=== PATIENT | male | born 1990 | race Caucasian/White ===

== ENCOUNTER 2017-08-05 02:18 | Emergency (ER) | payer MEDICAID ==
[~2017-08-05] VITALS: Ht 162.6 cm; Wt 59.1 kg
[2017-08-05] MEDS ORDERED: SODIUM CHLORIDE 0.9% 1,000 ML IV ONE (02:45)
[2017-08-05 05:15] VITALS: BP 124/81
== END 2017-08-05 05:55 | disposition home or self-care (01) ==
LOC: EMS 02:19
DX: F10.129 Alcohol abuse with intoxication, unspecified (principal); F17.210 Nicotine dependence, cigarettes, uncomplicated
CPT/HCPCS: 96360; 99284; J7030

== ENCOUNTER 2017-12-20 05:52 | Emergency (ER) | payer MEDICAID ==
[~2017-12-20] VITALS: Ht 170.2 cm; Wt 72.5 kg
[2017-12-20 06:58] LABS: EOSINOPHILS % (AUTO) 1.6 % (1.0-6.0); HEMATOCRIT 44.2 % (41-53); HEMOGLOBIN 15.3 g/dL (13.5-17.5); LYMPHOCYTES # (AUTO) 2.1 K/uL (1.0-4.8); LYMPHOCYTES % (AUTO) 40.1 % (22.0-44.0); MEAN CORPUSCULAR HEMOGLOBIN 34.6 pg (26.0-34.0); MEAN CORPUSCULAR HGB CONC 34.7 G/dL (31.0-37.0); MEAN CORPUSCULAR VOLUME 100 fL (80-100); MONOCYTES # (AUTO) 0.8 K/uL (0.1-1.0); MONOCYTES % (AUTO) 15.7 % (2.0-9.0); NEUTROPHILS # (AUTO) 2.2 K/uL (1.8-7.7); NEUTROPHILS % (AUTO) 41.6 % (40.0-70.0); PLATELET COUNT (AUTO) 274 K/uL (150-450); RED BLOOD CELL COUNT(AUTO) 4.43 MIL/uL (4.50-5.90); RED CELL DISTRIBUTION WIDTH 13.8 % (11.5-14.5)
[2017-12-20 07:07] LABS: ANION GAP 6 mmol/L (8-16); CALCIUM, TOTAL 8.4 mg/dL (8.8-10.5); CARBON DIOXIDE 32 mmol/L (22-29); CHLORIDE 105 mmol/L (98-107); CREATININE 0.87 mg/dL (0.60-1.30); GLOMERULAR FILTR. RATE CALC > 60 mL/min (>60); GLUCOSE,RANDOM 99 mg/dL (70-110); POTASSIUM 4.2 mmol/L (3.5-5.1); SODIUM SERUM 143 mmol/L (136-145); UREA NITROGEN, BLOOD 5 mg/dL (7-18)
[2017-12-20 07:15] LABS: ALANINE AMINOTRANSFERASE 162 U/L (12-78); ALBUMIN 3.7 g/dL (3.4-5.0); ALKALINE PHOSPHATASE 109 U/L (46-116); ASPARTATE AMINOTRANSFERASE 143 U/L (15-37); BILIRUBIN,TOTAL 0.4 mg/dL (0.1-1.0); TOTAL PROTEIN, SERUM 7.8 g/dL (6.4-8.2)
[2017-12-20 11:21] VITALS: BP 107/62
[2017-12-20 12:07] LABS: AMPHET/METH SCREEN,URINE NEGATIVE (NEGATIVE); BARBITURATE SCREEN, URINE NEGATIVE (NEGATIVE); BENZODIAZEPINES SCREEN,URINE NEGATIVE (NEGATIVE); CANNABINOID SCREEN,URINE NEGATIVE (NEGATIVE); COCAINE SCREEN,URINE NEGATIVE (NEGATIVE); METHADONE SCREEN, URINE NEGATIVE (NEGATIVE); OPIATE SCREEN,URINE NEGATIVE (NEGATIVE)
[2017-12-20 12:08] LABS: PHENCYCLIDINE SCREEN,URINE NEGATIVE (NEGATIVE)
== END 2017-12-20 12:37 | disposition home or self-care (01) ==
LOC: EMS 05:53
DX: F10.129 Alcohol abuse with intoxication, unspecified (principal); F17.210 Nicotine dependence, cigarettes, uncomplicated; Y90.8 Blood alcohol level of 240 mg/100 ml or more
CPT/HCPCS: 36415; 80053; 80307; 85025; 99284; G0480

== ENCOUNTER 2019-04-19 00:34 | Emergency (ER) | payer MEDICAID ==
[~2019-04-19] VITALS: Ht 162.6 cm; Wt 74.0 kg
[2019-04-19] MEDS ORDERED: LevETIRAcetam 1,000 MG in DEXTROSE 5%-WATER 100 ML IV ONE (00:45)
[2019-04-19 01:38] LABS: EOSINOPHILS % (AUTO) 0.8 % (1.0-6.0); HEMATOCRIT 38.6 % (41-53); HEMOGLOBIN 12.8 g/dL (13.5-17.5); LYMPHOCYTES % (AUTO) 25.7 % (22.0-44.0); MEAN CORPUSCULAR HEMOGLOBIN 32.9 pg (26.0-34.0); MEAN CORPUSCULAR HGB CONC 33.2 G/dL (31.0-37.0); MEAN CORPUSCULAR VOLUME 99 fL (80-100); MONOCYTES # (AUTO) 0.7 K/uL (0.1-1.0); MONOCYTES % (AUTO) 19.6 % (2.0-9.0); NEUTROPHILS % (AUTO) 52.9 % (40.0-70.0); PLATELET COUNT (AUTO) 228 K/uL (150-450); RED CELL DISTRIBUTION WIDTH 14.1 % (11.5-14.5)
[2019-04-19 01:57] LABS: ALANINE AMINOTRANSFERASE 68 U/L (12-78); ALBUMIN 3.1 g/dL (3.4-5.0); ALKALINE PHOSPHATASE 91 U/L (46-116); ANION GAP 9 mmol/L (8-16); ASPARTATE AMINOTRANSFERASE 106 U/L (15-37); BILIRUBIN,TOTAL 0.3 mg/dL (0.1-1.0); CALCIUM, TOTAL 7.8 mg/dL (8.8-10.5); CARBON DIOXIDE 26 mmol/L (22-29); CHLORIDE 106 mmol/L (98-107); CREATININE 0.92 mg/dL (0.60-1.30); GLOMERULAR FILTR. RATE CALC > 60 mL/min (>60); GLUCOSE,RANDOM 125 mg/dL (70-110); SODIUM SERUM 141 mmol/L (136-145); TOTAL PROTEIN, SERUM 7.1 g/dL (6.4-8.2); UREA NITROGEN, BLOOD 4 mg/dL (7-18)
[2019-04-19 01:59] LABS: POTASSIUM 2.9 mmol/L (3.5-5.1)
[2019-04-19] MEDS ORDERED: POTASSIUM CHLORIDE 20 MEQ ER TABLET PO ONE (02:15)
[2019-04-19] MEDS ORDERED: SODIUM CHLORIDE 0.9% 1,000 ML IV ONE (02:15)
[2019-04-19] MEDS: POTASSIUM CHL 10 MEQ/WATER 50 ML IV SCH ×2 (02:17→03:10)
[2019-04-19 05:53] VITALS: BP 110/67
== END 2019-04-19 06:10 | disposition home or self-care (01) ==
LOC: EMS 00:36
DX: G40.909 Epilepsy, unspecified, not intractable, without status epilepticus (principal); F17.210 Nicotine dependence, cigarettes, uncomplicated
CPT/HCPCS: 36415; 70450; 80053; 85025; 96365; 99284; 99406; G0480; J0712; J3480; J7030; J7060

== ENCOUNTER 2019-04-26 20:40 | Emergency (ER) | payer MEDICAID ==
[~2019-04-26] VITALS: Ht 172.7 cm; Wt 75.0 kg
[2019-04-26] MEDS ORDERED: LORazepam 2 MG/ML VIAL ONE (21:19)
[2019-04-26] MEDS ORDERED: SODIUM CHLORIDE 0.9% 1,000 ML IV ONE (22:00)
[2019-04-26] MEDS ORDERED: LevETIRAcetam 1,000 MG in DEXTROSE 5%-WATER 100 ML IV ONE (22:00)
[2019-04-26 22:02] LABS: BASOPHILS % (AUTO) 0.6 % (0.0-2.0); EOSINOPHILS % (AUTO) 0.6 % (1.0-6.0); HEMATOCRIT 43.2 % (41-53); HEMOGLOBIN 14.4 g/dL (13.5-17.5); LYMPHOCYTES # (AUTO) 1.4 K/uL (1.0-4.8); LYMPHOCYTES % (AUTO) 27.4 % (22.0-44.0); MEAN CORPUSCULAR HEMOGLOBIN 33.5 pg (26.0-34.0); MEAN CORPUSCULAR HGB CONC 33.4 G/dL (31.0-37.0); MEAN CORPUSCULAR VOLUME 100 fL (80-100); MONOCYTES # (AUTO) 0.8 K/uL (0.1-1.0); MONOCYTES % (AUTO) 14.5 % (2.0-9.0); NEUTROPHILS % (AUTO) 56.9 % (40.0-70.0); PLATELET COUNT (AUTO) 247 K/uL (150-450); RED BLOOD CELL COUNT(AUTO) 4.31 MIL/uL (4.50-5.90); RED CELL DISTRIBUTION WIDTH 14.5 % (11.5-14.5)
[2019-04-26 22:10] LABS: AMPHET/METH SCREEN,URINE NEGATIVE (NEGATIVE); BARBITURATE SCREEN, URINE NEGATIVE (NEGATIVE); BENZODIAZEPINES SCREEN,URINE NEGATIVE (NEGATIVE); CANNABINOID SCREEN,URINE NEGATIVE (NEGATIVE); COCAINE SCREEN,URINE NEGATIVE (NEGATIVE); METHADONE SCREEN, URINE NEGATIVE (NEGATIVE); OPIATE SCREEN,URINE NEGATIVE (NEGATIVE)
[2019-04-26 22:11] LABS: PHENCYCLIDINE SCREEN,URINE NEGATIVE (NEGATIVE)
[2019-04-26 22:17] LABS: ANION GAP 13 mmol/L (8-16); CALCIUM, TOTAL 8.7 mg/dL (8.8-10.5); CARBON DIOXIDE 22 mmol/L (22-29); CHLORIDE 104 mmol/L (98-107); CREATININE 0.75 mg/dL (0.60-1.30); GLOMERULAR FILTR. RATE CALC > 60 mL/min (>60); GLUCOSE,RANDOM 99 mg/dL (70-110); POTASSIUM 3.6 mmol/L (3.5-5.1); SODIUM SERUM 139 mmol/L (136-145); UREA NITROGEN, BLOOD 4 mg/dL (7-18)
[2019-04-26 22:41] LABS: ALANINE AMINOTRANSFERASE 87 U/L (12-78); ALBUMIN 3.5 g/dL (3.4-5.0); ALKALINE PHOSPHATASE 106 U/L (46-116); ASPARTATE AMINOTRANSFERASE 86 U/L (15-37); BILIRUBIN,TOTAL 0.7 mg/dL (0.1-1.0); CREATINE KINASE, TOTAL ONLY 280 U/L (39-308)
[2019-04-27 00:46] LABS: GLUCOSE,POINT OF CARE 103 MG/DL (70-110)
[2019-04-27 00:46] LABS: GLUCOSE,POINT OF CARE 88 MG/DL (70-110)
[2019-04-27 04:33] LABS: GLUCOSE,POINT OF CARE 95 MG/DL (70-110)
[2019-04-27 07:17] LABS: GLUCOSE,POINT OF CARE 73 MG/DL (70-110)
[2019-04-27] MEDS ORDERED: LORazepam 2 MG/ML VIAL IVP PRN (08:00)
[2019-04-27] MEDS ORDERED: MAGNESIUM HYDROXIDE SUSPENSION 30 ML UDCUP PO PRN (08:00)
[2019-04-27] MEDS ORDERED: ChlordiazePOXIDE HCL 10 MG CAPSULE PO SCH (08:00)
[2019-04-27] MEDS ORDERED: ONDANSETRON HCL 4 MG/2 ML VIAL IVP PRN (08:00)
[2019-04-27] MEDS ORDERED: ACETAMINOPHEN 325 MG TABLET PO PRN (08:00)
[2019-04-27] MEDS ORDERED: DEXTROSE 5%-0.45% SODIUM CHL 1,000 ML IV ONE (08:00)
[2019-04-27] MEDS ORDERED: DOCUSATE SODIUM 100 MG CAPSULE PO SCH (09:00)
[2019-04-27] MEDS ORDERED: MULTIVITAMINS WITH MINERALS, THERAPEUTIC TABLET PO SCH (09:00)
[2019-04-27] MEDS ORDERED: FAMOTIDINE 20 MG TABLET PO SCH (09:00)
[2019-04-27 10:11] LABS: GLUCOSE,POINT OF CARE 81 MG/DL (70-110)
[2019-04-27 10:14] VITALS: BP 124/83
== END 2019-04-27 10:10 | disposition left against medical advice (07) ==
LOC: EMS 20:40
DX: G40.909 Epilepsy, unspecified, not intractable, without status epilepticus (principal); F10.129 Alcohol abuse with intoxication, unspecified; G93.40 Encephalopathy, unspecified; E11.9 Type 2 diabetes mellitus without complications; F17.210 Nicotine dependence, cigarettes, uncomplicated; Z79.4 Long term (current) use of insulin
CPT/HCPCS: 36415; 70450; 80053; 80307; 82550; 82962; 83605; 83735; 85025; 96374; 99284; G0480; G0482; J0712; J2060; J7030; J7060

== ENCOUNTER 2019-07-06 23:10 | Emergency (ER) | payer MEDICAID ==
[~2019-07-06] VITALS: Ht 170.2 cm; Wt 79.5 kg
[2019-07-06] MEDS ORDERED: LevETIRAcetam 1,000 MG in DEXTROSE 5%-WATER 100 ML IV ONE (23:30)
[2019-07-06 23:53] LABS: BASOPHILS % (AUTO) 2.2 % (0.0-2.0); EOSINOPHILS % (AUTO) 1.8 % (1.0-6.0); HEMATOCRIT 40.7 % (41-53); HEMOGLOBIN 13.6 g/dL (13.5-17.5); LYMPHOCYTES # (AUTO) 1.5 K/uL (1.0-4.8); LYMPHOCYTES % (AUTO) 38.3 % (22.0-44.0); MEAN CORPUSCULAR HEMOGLOBIN 33.3 pg (26.0-34.0); MEAN CORPUSCULAR HGB CONC 33.3 G/dL (31.0-37.0); MEAN CORPUSCULAR VOLUME 100 fL (80-100); MONOCYTES # (AUTO) 0.6 K/uL (0.1-1.0); NEUTROPHILS # (AUTO) 1.7 K/uL (1.8-7.7); NEUTROPHILS % (AUTO) 42.7 % (40.0-70.0); PLATELET COUNT (AUTO) 185 K/uL (150-450); RED BLOOD CELL COUNT(AUTO) 4.08 MIL/uL (4.50-5.90)
[2019-07-07 00:14] LABS: ALANINE AMINOTRANSFERASE 176 U/L (12-78); ALBUMIN 3.7 g/dL (3.4-5.0); ALKALINE PHOSPHATASE 127 U/L (46-116); ANION GAP 11 mmol/L (8-16); ASPARTATE AMINOTRANSFERASE 263 U/L (15-37); BILIRUBIN,TOTAL 0.5 mg/dL (0.1-1.0); CALCIUM, TOTAL 8.2 mg/dL (8.8-10.5); CARBON DIOXIDE 23 mmol/L (22-29); CHLORIDE 105 mmol/L (98-107); CREATININE 0.84 mg/dL (0.60-1.30); GLOMERULAR FILTR. RATE CALC > 60 mL/min (>60); GLUCOSE,RANDOM 155 mg/dL (70-110); SODIUM SERUM 139 mmol/L (136-145); TOTAL PROTEIN, SERUM 7.4 g/dL (6.4-8.2); UREA NITROGEN, BLOOD 5 mg/dL (7-18)
[2019-07-07 02:54] LABS: AMPHET/METH SCREEN,URINE NEGATIVE (NEGATIVE); BARBITURATE SCREEN, URINE NEGATIVE (NEGATIVE); BENZODIAZEPINES SCREEN,URINE POSITIVE (NEGATIVE); CANNABINOID SCREEN,URINE NEGATIVE (NEGATIVE); COCAINE SCREEN,URINE NEGATIVE (NEGATIVE); METHADONE SCREEN, URINE NEGATIVE (NEGATIVE); OPIATE SCREEN,URINE NEGATIVE (NEGATIVE)
[2019-07-07 02:56] LABS: PHENCYCLIDINE SCREEN,URINE NEGATIVE (NEGATIVE)
[2019-07-07 05:53] VITALS: BP 111/70
== END 2019-07-07 06:06 | disposition home or self-care (01) ==
LOC: EMS 23:11
DX: G40.909 Epilepsy, unspecified, not intractable, without status epilepticus (principal); F10.10 Alcohol abuse, uncomplicated; E11.9 Type 2 diabetes mellitus without complications; F17.210 Nicotine dependence, cigarettes, uncomplicated
CPT/HCPCS: 36415; 80053; 80307; 82962; 85025; 93005; 96365; 99284; G0480; J0712; J7060

== ENCOUNTER 2019-09-18 03:29 | Emergency (ER) | payer MEDICAID ==
[~2019-09-18] VITALS: Ht 167.6 cm; Wt 79.1 kg
[2019-09-18] MEDS ORDERED: SODIUM CHLORIDE 0.9% 1,000 ML IV ONE ×3 (04:30→09:30)
[2019-09-18 05:12] LABS: BASOPHILS % (AUTO) 0.5 % (0.0-2.0); EOSINOPHILS % (AUTO) 0.1 % (1.0-6.0); HEMATOCRIT 41.3 % (41-53); HEMOGLOBIN 13.7 g/dL (13.5-17.5); LYMPHOCYTES # (AUTO) 0.6 K/uL (1.0-4.8); LYMPHOCYTES % (AUTO) 10.3 % (22.0-44.0); MEAN CORPUSCULAR HEMOGLOBIN 33.4 pg (26.0-34.0); MEAN CORPUSCULAR HGB CONC 33.1 G/dL (31.0-37.0); MEAN CORPUSCULAR VOLUME 101 fL (80-100); MONOCYTES # (AUTO) 0.2 K/uL (0.1-1.0); NEUTROPHILS # (AUTO) 4.8 K/uL (1.8-7.7); NEUTROPHILS % (AUTO) 85.1 % (40.0-70.0); PLATELET COUNT (AUTO) 341 K/uL (150-450); RED BLOOD CELL COUNT(AUTO) 4.09 MIL/uL (4.50-5.90); RED CELL DISTRIBUTION WIDTH 14.3 % (11.5-14.5)
[2019-09-18 05:20] LABS: ANION GAP 11 mmol/L (8-16); CALCIUM, TOTAL 8.6 mg/dL (8.8-10.5); CARBON DIOXIDE 27 mmol/L (22-29); CHLORIDE 105 mmol/L (98-107); CREATININE 0.81 mg/dL (0.60-1.30); GLOMERULAR FILTR. RATE CALC > 60 mL/min (>60); GLUCOSE,RANDOM 124 mg/dL (70-110); POTASSIUM 3.9 mmol/L (3.5-5.1); SODIUM SERUM 143 mmol/L (136-145); UREA NITROGEN, BLOOD 7 mg/dL (7-18)
[2019-09-18 05:44] LABS: CREATINE KINASE, TOTAL ONLY 193 U/L (39-308)
[2019-09-18] MEDS ORDERED: ONDANSETRON HCL 4 MG/2 ML VIAL IVP ONE (07:00)
[2019-09-18 12:00] VITALS: BP 137/84
== END 2019-09-18 12:25 | disposition home or self-care (01) ==
LOC: EMS 03:29
DX: F10.129 Alcohol abuse with intoxication, unspecified (principal); F17.210 Nicotine dependence, cigarettes, uncomplicated; E11.9 Type 2 diabetes mellitus without complications; Y90.8 Blood alcohol level of 240 mg/100 ml or more
CPT/HCPCS: 36415; 80048; 82550; 83735; 84484; 85025; 93005; 96361; 96374; 99285; G0480; J2405; J7030

== ENCOUNTER 2019-10-19 11:45 | Emergency (ER) | payer MEDICAID ==
[~2019-10-19] VITALS: Ht 170.2 cm; Wt 72.7 kg
[2019-10-19] MEDS ORDERED: QUET25TA PO (11:54)
[2019-10-19] MEDS ORDERED: LEVE250T55 PO (12:06)
[2019-10-19 12:43] LABS: BASOPHILS % (AUTO) 0.7 % (0.0-2.0); EOSINOPHILS % (AUTO) 2.4 % (1.0-6.0); HEMATOCRIT 40.1 % (41-53); HEMOGLOBIN 13.1 g/dL (13.5-17.5); LYMPHOCYTES # (AUTO) 1.6 K/uL (1.0-4.8); MEAN CORPUSCULAR HEMOGLOBIN 32.8 pg (26.0-34.0); MEAN CORPUSCULAR HGB CONC 32.8 G/dL (31.0-37.0); MEAN CORPUSCULAR VOLUME 100 fL (80-100); MONOCYTES # (AUTO) 0.7 K/uL (0.1-1.0); MONOCYTES % (AUTO) 14.1 % (2.0-9.0); NEUTROPHILS # (AUTO) 2.4 K/uL (1.8-7.7); NEUTROPHILS % (AUTO) 48.8 % (40.0-70.0); PLATELET COUNT (AUTO) 296 K/uL (150-450); RED BLOOD CELL COUNT(AUTO) 4.01 MIL/uL (4.50-5.90); RED CELL DISTRIBUTION WIDTH 13.9 % (11.5-14.5)
[2019-10-19 12:57] LABS: ANION GAP 14 mmol/L (8-16); CALCIUM, TOTAL 8.5 mg/dL (8.8-10.5); CARBON DIOXIDE 26 mmol/L (22-29); CHLORIDE 106 mmol/L (98-107); CREATININE 0.88 mg/dL (0.60-1.30); GLOMERULAR FILTR. RATE CALC > 60 mL/min (>60); GLUCOSE,RANDOM 104 mg/dL (70-110); POTASSIUM 4.2 mmol/L (3.5-5.1); SODIUM SERUM 146 mmol/L (136-145); UREA NITROGEN, BLOOD 8 mg/dL (7-18)
[2019-10-19 13:03] LABS: ALANINE AMINOTRANSFERASE 65 U/L (12-78); ALBUMIN 4.2 g/dL (3.4-5.0); ALKALINE PHOSPHATASE 85 U/L (46-116); ASPARTATE AMINOTRANSFERASE 61 U/L (15-37); BILIRUBIN,TOTAL 0.3 mg/dL (0.1-1.0)
[2019-10-19 13:19] LABS: TOTAL PROTEIN, SERUM 8.7 g/dL (6.4-8.2)
[2019-10-19 16:11] LABS: AMPHET/METH SCREEN,URINE NEGATIVE (NEGATIVE); BARBITURATE SCREEN, URINE NEGATIVE (NEGATIVE); BENZODIAZEPINES SCREEN,URINE POSITIVE (NEGATIVE); CANNABINOID SCREEN,URINE NEGATIVE (NEGATIVE); COCAINE SCREEN,URINE NEGATIVE (NEGATIVE); METHADONE SCREEN, URINE NEGATIVE (NEGATIVE); OPIATE SCREEN,URINE NEGATIVE (NEGATIVE)
[2019-10-19 16:16] LABS: PHENCYCLIDINE SCREEN,URINE NEGATIVE (NEGATIVE)
[2019-10-19 16:52] VITALS: BP 118/67
== END 2019-10-19 17:06 | disposition home or self-care (01) ==
LOC: EMS 11:48
DX: F10.129 Alcohol abuse with intoxication, unspecified (principal); F22 Delusional disorders; E11.9 Type 2 diabetes mellitus without complications; F17.210 Nicotine dependence, cigarettes, uncomplicated; Y90.8 Blood alcohol level of 240 mg/100 ml or more
CPT/HCPCS: 36415; 80053; 80307; 82962; 85025; 99285; G0480

== ENCOUNTER 2020-05-08 19:02 | Emergency (ER) | payer MEDICAID ==
[~2020-05-08] VITALS: Ht 167.6 cm; Wt 77.3 kg
[~2020-05-08 19:02] MED LIST: LEVE250T55 PO; QUET25TA PO
[2020-05-08] MEDS ORDERED: LORazepam 1 MG TABLET PO ONE (19:30)
[2020-05-08 19:51] LABS: GLUCOSE,POINT OF CARE 105 MG/DL (70-110)
[2020-05-08 20:00] LABS: BASOPHILS % (AUTO) 0.3 % (0.0-2.0); EOSINOPHILS % (AUTO) 0.9 % (1.0-6.0); HEMATOCRIT 42.7 % (41-53); HEMOGLOBIN 14.7 g/dL (13.5-17.5); LYMPHOCYTES % (AUTO) 34.6 % (22.0-44.0); MEAN CORPUSCULAR HEMOGLOBIN 31.9 pg (26.0-34.0); MEAN CORPUSCULAR HGB CONC 34.4 G/dL (31.0-37.0); MEAN CORPUSCULAR VOLUME 93 fL (80-100); MONOCYTES # (AUTO) 0.6 K/uL (0.1-1.0); MONOCYTES % (AUTO) 9.8 % (2.0-9.0); NEUTROPHILS # (AUTO) 3.2 K/uL (1.8-7.7); NEUTROPHILS % (AUTO) 54.4 % (40.0-70.0); PLATELET COUNT (AUTO) 286 K/uL (150-450); RED BLOOD CELL COUNT(AUTO) 4.61 MIL/uL (4.50-5.90); RED CELL DISTRIBUTION WIDTH 14.1 % (11.5-14.5)
[2020-05-08] MEDS ORDERED: LevETIRAcetam 1,000 MG in DEXTROSE 5%-WATER 100 ML IV ONE (20:15)
[2020-05-08 20:29] LABS: ANION GAP 10 mmol/L (8-16); CALCIUM, TOTAL 8.2 mg/dL (8.8-10.5); CARBON DIOXIDE 24 mmol/L (22-29); CHLORIDE 106 mmol/L (98-107); CREATININE 0.82 mg/dL (0.60-1.30); GLOMERULAR FILTR. RATE CALC > 60 mL/min (>60); GLUCOSE,RANDOM 116 mg/dL (70-110); POTASSIUM 3.4 mmol/L (3.5-5.1); SODIUM SERUM 140 mmol/L (136-145); UREA NITROGEN, BLOOD 6 mg/dL (7-18)
[2020-05-08 20:30] LABS: AMPHET/METH SCREEN,URINE NEGATIVE (NEGATIVE); BARBITURATE SCREEN, URINE NEGATIVE (NEGATIVE); BENZODIAZEPINES SCREEN,URINE NEGATIVE (NEGATIVE); CANNABINOID SCREEN,URINE NEGATIVE (NEGATIVE); COCAINE SCREEN,URINE NEGATIVE (NEGATIVE); METHADONE SCREEN, URINE NEGATIVE (NEGATIVE); OPIATE SCREEN,URINE NEGATIVE (NEGATIVE)
[2020-05-08 20:36] LABS: ALANINE AMINOTRANSFERASE 42 U/L (12-78); ALBUMIN 3.3 g/dL (3.4-5.0); ALKALINE PHOSPHATASE 95 U/L (46-116); ASPARTATE AMINOTRANSFERASE 22 U/L (15-37); BILIRUBIN,TOTAL 0.6 mg/dL (0.1-1.0); TOTAL PROTEIN, SERUM 7.7 g/dL (6.4-8.2)
[2020-05-08 20:37] LABS: PHENCYCLIDINE SCREEN,URINE NEGATIVE (NEGATIVE)
[2020-05-08] MEDS ORDERED: POTASSIUM CHLORIDE 20 MEQ ER TABLET PO ONE (21:00)
[2020-05-08 22:30] VITALS: BP 123/78
== END 2020-05-08 22:30 | disposition home or self-care (01) ==
LOC: EMS 19:03
DX: F10.129 Alcohol abuse with intoxication, unspecified (principal); G40.909 Epilepsy, unspecified, not intractable, without status epilepticus; E11.9 Type 2 diabetes mellitus without complications; F17.210 Nicotine dependence, cigarettes, uncomplicated; Z79.899 Other long term (current) drug therapy; Y90.8 Blood alcohol level of 240 mg/100 ml or more
CPT/HCPCS: 36415; 80053; 80307; 82962; 85025; 96365; 99285; 99406; G0480; J0712; J7060

== ENCOUNTER 2020-09-12 01:01 | Inpatient (IN) | payer MEDICAID ==
[~2020-09-12] VITALS: Ht 167.6 cm; Wt 99.3 kg
[2020-09-12] VITALS (9 sets, daily range): BP systolic 105–130; BP diastolic 62–84
[~2020-09-12 01:01] MED LIST changes: +ESCI-8 PO; +LEVE1000 PO; -LEVE250T55 PO; +MULT-1203 PO; -QUET25TA PO
[2020-09-12 01:53] LABS: BASOPHILS % (AUTO) 0.9 % (0.0-2.0); EOSINOPHILS % (AUTO) 1.6 % (1.0-6.0); HEMATOCRIT 41.3 % (41-53); HEMOGLOBIN 13.6 g/dL (13.5-17.5); LYMPHOCYTES # (AUTO) 2.5 K/uL (1.0-4.8); LYMPHOCYTES % (AUTO) 32.3 % (22.0-44.0); MEAN CORPUSCULAR HEMOGLOBIN 29.9 pg (26.0-34.0); MEAN CORPUSCULAR HGB CONC 32.9 G/dL (31.0-37.0); MEAN CORPUSCULAR VOLUME 91 fL (80-100); MONOCYTES # (AUTO) 0.7 K/uL (0.1-1.0); MONOCYTES % (AUTO) 8.4 % (2.0-9.0); NEUTROPHILS # (AUTO) 4.4 K/uL (1.8-7.7); NEUTROPHILS % (AUTO) 56.8 % (40.0-70.0); PLATELET COUNT (AUTO) 334 K/uL (150-450); RED BLOOD CELL COUNT(AUTO) 4.55 MIL/uL (4.50-5.90); RED CELL DISTRIBUTION WIDTH 14.7 % (11.5-14.5)
[2020-09-12 02:01] LABS: ANION GAP 8 mmol/L (8-16); CALCIUM, TOTAL 8.4 mg/dL (8.8-10.5); CARBON DIOXIDE 28 mmol/L (22-29); CHLORIDE 106 mmol/L (98-107); CREATININE 0.95 mg/dL (0.60-1.30); GLOMERULAR FILTR. RATE CALC > 60 mL/min (>60); GLUCOSE,RANDOM 111 mg/dL (70-110); POTASSIUM 3.9 mmol/L (3.5-5.1); SODIUM SERUM 142 mmol/L (136-145); UREA NITROGEN, BLOOD 9 mg/dL (7-18)
[2020-09-12 02:07] LABS: ALANINE AMINOTRANSFERASE 79 U/L (12-78); ALBUMIN 3.4 g/dL (3.4-5.0); ALKALINE PHOSPHATASE 93 U/L (46-116); ASPARTATE AMINOTRANSFERASE 37 U/L (15-37); BILIRUBIN,TOTAL 0.3 mg/dL (0.1-1.0); TOTAL PROTEIN, SERUM 7.3 g/dL (6.4-8.2)
[2020-09-12 02:14] LABS: ACETAMINOPHEN < 2 mcg/mL (10-30)
[2020-09-12 02:25] LABS: SALICYLATE 0.7 mg/dL (2.8-20.0)
[2020-09-12] MEDS ORDERED: HALOPERIDOL 5 MG TABLET PO PRN (03:30)
[2020-09-12 04:35] LABS: COVID AG,FIA SOURCE NASOPHARYNGEAL
[2020-09-12 05:27] LABS: APPEARANCE,URINE CLEAR (CLEAR); BILIRUBIN,URINE NEGATIVE (NEGATIVE); GLUCOSE, URINE (UA) NEGATIVE (NEGATIVE); KETONES,URINE NEGATIVE (NEGATIVE); LEUKOCYTE ESTERASE ,URINE NEGATIVE (NEGATIVE); NITRATE,URINE NEGATIVE (NEGATIVE); OCCULT BLOOD,URINE NEGATIVE (NEGATIVE); PROTEIN,URINE NEGATIVE (NEGATIVE); UROBILINOGEN,URINE 0.2 mg/dL (<=1.0)
[2020-09-12 05:32] LABS: AMPHET/METH SCREEN,URINE NEGATIVE (NEGATIVE); BARBITURATE SCREEN, URINE NEGATIVE (NEGATIVE); BENZODIAZEPINES SCREEN,URINE NEGATIVE (NEGATIVE); CANNABINOID SCREEN,URINE POSITIVE (NEGATIVE); COCAINE SCREEN,URINE NEGATIVE (NEGATIVE); METHADONE SCREEN, URINE NEGATIVE (NEGATIVE); OPIATE SCREEN,URINE NEGATIVE (NEGATIVE)
[2020-09-12 05:34] LABS: PHENCYCLIDINE SCREEN,URINE NEGATIVE (NEGATIVE)
[2020-09-12] MEDS ORDERED: CloNIDine HCL 0.1 MG TABLET PO PRN (10:15)
[2020-09-12] MEDS ORDERED: BACITRACIN 28 GM OINTMENT TP PRN (10:15)
[2020-09-12] MEDS ORDERED: ALBUTEROL SULFATE HFA 90 MCG/PUFF 8 GM INHALER IH PRN (10:15)
[2020-09-12] MEDS ORDERED: DOCUSATE SODIUM 100 MG CAPSULE PO PRN (10:15)
[2020-09-12] MEDS ORDERED: IBUPROFEN 600 MG TABLET PO PRN (10:15)
[2020-09-12] MEDS ORDERED: PETROLATUM,WHITE 28 GM JELLY TP PRN (10:15)
[2020-09-12] MEDS ORDERED: ONDANSETRON HCL 4 MG TABLET PO PRN (10:15)
[2020-09-12] MEDS ORDERED: OMEPRAZOLE 20 MG CAPSULE PO PRN (10:15)
[2020-09-12] MEDS ORDERED: LOPERAMIDE HCL 2 MG CAPSULE PO PRN (10:15)
[2020-09-12] MEDS ORDERED: ACETAMINOPHEN 325 MG TABLET PO PRN (10:15)
[2020-09-12] MEDS ORDERED: MAG HYDROX/AL HYDROX/SIMETH ES 30 ML SUSPENSION UDCUP PO PRN (10:15)
[2020-09-12] MEDS ORDERED: BENZOCAINE/MENTHOL LOZENGE PO PRN (10:15)
[2020-09-12] MEDS ORDERED: MAGNESIUM HYDROXIDE SUSPENSION 30 ML UDCUP PO PRN (10:15)
[2020-09-12] MEDS: MULTIVITAMINS, THERAPEUTIC TABLET PO SCH (10:34)
[2020-09-12] MEDS ORDERED: LevETIRAcetam 500 MG TABLET PO SCH (17:00)
[2020-09-12] MEDS: LevETIRAcetam 500 MG TABLET PO SCH (17:33)
[2020-09-13] VITALS (7 sets, daily range): BP systolic 110–121; BP diastolic 62–73
[2020-09-13 08:29] LABS: CHOL/HDL RATIO 4.2 (4.2-7.3)
[2020-09-13] MEDS: LevETIRAcetam 500 MG TABLET PO SCH ×2 (08:31→16:52)
[2020-09-13] MEDS: MULTIVITAMINS, THERAPEUTIC TABLET PO SCH (08:31)
[2020-09-13] MEDS ORDERED: [UNRECOGNIZED DRUG - OTHER] PO SCH (09:00)
[2020-09-13] MEDS: ZOLPIDEM TARTRATE 10 MG TABLET PO PRN (20:40)
[2020-09-14 06:31] VITALS: BP 107/68
[2020-09-14 08:05] VITALS: BP 112/73
[2020-09-14] MEDS: MULTIVITAMINS, THERAPEUTIC TABLET PO SCH (08:13)
[2020-09-14] MEDS: LevETIRAcetam 500 MG TABLET PO SCH ×2 (08:13→16:13)
[2020-09-14] MEDS: ESCITALOPRAM OXALATE 10 MG TABLET PO SCH ×2 (14:15→14:21)
[2020-09-14 16:04] VITALS: BP 108/74
[2020-09-14 17:15] VITALS: BP 108/74
[2020-09-14] MEDS: LORazepam 2 MG TABLET PO PRN (20:11)
[2020-09-14] MEDS: ZOLPIDEM TARTRATE 10 MG TABLET PO PRN (21:37)
[2020-09-15 00:11] VITALS: BP 110/68
[2020-09-15 00:30] VITALS: BP 110/68
[2020-09-15] MEDS: LevETIRAcetam 500 MG TABLET PO SCH ×2 (08:18→16:04)
[2020-09-15] MEDS: ESCITALOPRAM OXALATE 10 MG TABLET PO SCH (08:18)
[2020-09-15] MEDS: MULTIVITAMINS, THERAPEUTIC TABLET PO SCH (08:18)
[2020-09-15 08:28] VITALS: BP 101/61
[2020-09-15 08:29] VITALS: BP 101/61
[2020-09-15 16:01] VITALS: BP 114/70
[2020-09-15 16:10] VITALS: BP 114/70
[2020-09-15] MEDS: LORazepam 2 MG TABLET PO PRN (18:34)
[2020-09-15] MEDS: ZOLPIDEM TARTRATE 10 MG TABLET PO PRN (20:27)
[2020-09-16 00:25] VITALS: BP 114/68
[2020-09-16 00:26] VITALS: BP 114/68
[2020-09-16 08:24] VITALS: BP 112/79
[2020-09-16] MEDS: ESCITALOPRAM OXALATE 10 MG TABLET PO SCH (08:25)
[2020-09-16] MEDS: LevETIRAcetam 500 MG TABLET PO SCH ×2 (08:25→16:55)
[2020-09-16] MEDS: MULTIVITAMINS, THERAPEUTIC TABLET PO SCH (08:25)
[2020-09-16] MEDS: LORazepam 2 MG TABLET PO PRN ×3 (08:27→17:30)
[2020-09-16 13:12] VITALS: BP 112/79
[2020-09-16 16:08] VITALS: BP 104/63
[2020-09-16 16:10] VITALS: BP 104/63
[2020-09-16] MEDS: ZOLPIDEM TARTRATE 10 MG TABLET PO PRN (20:20)
[2020-09-17 02:45] VITALS: BP 118/75
[2020-09-17 04:40] VITALS: BP 116/69
[2020-09-17 08:27] VITALS: BP 112/66
[2020-09-17] MEDS: LORazepam 2 MG TABLET PO PRN ×2 (08:42→17:20)
[2020-09-17] MEDS: ESCITALOPRAM OXALATE 10 MG TABLET PO SCH (08:42)
[2020-09-17] MEDS: LevETIRAcetam 500 MG TABLET PO SCH ×2 (08:42→16:52)
[2020-09-17] MEDS: MULTIVITAMINS, THERAPEUTIC TABLET PO SCH (08:42)
[2020-09-17 14:58] VITALS: BP 112/66
[2020-09-17 16:06] VITALS: BP 100/60
[2020-09-17] MEDS: ZOLPIDEM TARTRATE 10 MG TABLET PO PRN (20:49)
[2020-09-18 06:13] VITALS: BP 105/58
[2020-09-18 06:28] VITALS: BP 105/58
[2020-09-18 08:43] VITALS: BP 112/67
[2020-09-18] MEDS: MULTIVITAMINS, THERAPEUTIC TABLET PO SCH (09:15)
[2020-09-18] MEDS: LevETIRAcetam 500 MG TABLET PO SCH (09:15)
[2020-09-18] MEDS: ESCITALOPRAM OXALATE 10 MG TABLET PO SCH (09:15)
[2020-09-18] MEDS: LORazepam 2 MG TABLET PO PRN (09:15)
[2020-09-18 14:05] VITALS: BP 110/66
[2020-09-19] MEDS ORDERED: THIAMINE 100 MG TABLET PO SCH (09:00)
[2020-09-19] MEDS ORDERED: FOLIC ACID 1 MG TABLET PO SCH (09:00)
== END 2020-09-18 16:30 | disposition home or self-care (01) | DRG 750 ==
LOC: EMS 01:04 → B3A 07:16
PROVIDERS: ADMIT Psychiatry & Neurology Psychiatry; ATTEND Psychiatry & Neurology Psychiatry
DX: F20.9 Schizophrenia, unspecified (principal); G40.909 Epilepsy, unspecified, not intractable, without status epilepticus; F10.129 Alcohol abuse with intoxication, unspecified; F41.9 Anxiety disorder, unspecified; G47.00 Insomnia, unspecified; T50.902A Poisoning by unspecified drugs, medicaments and biological substances, intentional self-harm, initial encounter; Z20.822 Contact with and (suspected) exposure to COVID-19; Y92.89 Other specified places as the place of occurrence of the external cause; Z87.891 Personal history of nicotine dependence
CPT/HCPCS: 87426; 93005; 99291; G0480; G0481

== ENCOUNTER 2020-11-21 13:24 | Inpatient (IN) | payer MEDICAID ==
[~2020-11-21] VITALS: Ht 167.6 cm; Wt 96.8 kg
[~2020-11-21 13:24] MED LIST changes: +HEPA500018 SQ; -MULT-1203 PO
[2020-11-21] MEDS ORDERED: HALOPERIDOL 5 MG TABLET PO PRN (17:15)
[2020-11-21] MEDS ORDERED: LORazepam 2 MG TABLET PO PRN (17:15)
[2020-11-21 17:39] VITALS: BP 131/86
[2020-11-21] MEDS ORDERED: LOPERAMIDE HCL 2 MG CAPSULE PO PRN (19:15)
[2020-11-21] MEDS ORDERED: BACITRACIN 28 GM OINTMENT TP PRN (19:15)
[2020-11-21] MEDS ORDERED: MAGNESIUM HYDROXIDE SUSPENSION 30 ML UDCUP PO PRN (19:15)
[2020-11-21] MEDS ORDERED: ONDANSETRON HCL 4 MG TABLET PO PRN (19:15)
[2020-11-21] MEDS ORDERED: PETROLATUM,WHITE 28 GM JELLY TP PRN (19:15)
[2020-11-21] MEDS ORDERED: IBUPROFEN 600 MG TABLET PO PRN (19:15)
[2020-11-21] MEDS ORDERED: MAG HYDROX/AL HYDROX/SIMETH ES 30 ML SUSPENSION UDCUP PO PRN (19:15)
[2020-11-21] MEDS ORDERED: ALBUTEROL SULFATE HFA 90 MCG/PUFF 8 GM INHALER IH PRN (19:15)
[2020-11-21] MEDS ORDERED: BENZOCAINE/MENTHOL LOZENGE PO PRN (19:15)
[2020-11-21] MEDS ORDERED: ACETAMINOPHEN 325 MG TABLET PO PRN (19:15)
[2020-11-21] MEDS ORDERED: CloNIDine HCL 0.1 MG TABLET PO PRN (19:15)
[2020-11-21] MEDS: ZOLPIDEM TARTRATE 10 MG TABLET PO PRN (20:53)
[2020-11-22 08:06] VITALS: BP 103/75
[2020-11-22] MEDS: OMEPRAZOLE 20 MG CAPSULE PO SCH (10:02)
[2020-11-22] MEDS: DOCUSATE SODIUM 100 MG CAPSULE PO SCH (10:02)
[2020-11-22] MEDS: LevETIRAcetam 500 MG TABLET PO SCH ×2 (10:03→16:21)
[2020-11-22 16:28] VITALS: BP 124/72
[2020-11-23] MEDS: ZOLPIDEM TARTRATE 10 MG TABLET PO PRN (00:10)
[2020-11-23 07:08] LABS: BASOPHILS % (AUTO) 0.5 % (0.0-2.0); EOSINOPHILS % (AUTO) 2.2 % (1.0-6.0); HEMATOCRIT 42.6 % (41-53); HEMOGLOBIN 14.1 g/dL (13.5-17.5); LYMPHOCYTES # (AUTO) 2.1 K/uL (1.0-4.8); LYMPHOCYTES % (AUTO) 28.5 % (22.0-44.0); MEAN CORPUSCULAR HEMOGLOBIN 30.2 pg (26.0-34.0); MEAN CORPUSCULAR HGB CONC 33.1 G/dL (31.0-37.0); MEAN CORPUSCULAR VOLUME 91 fL (80-100); MONOCYTES # (AUTO) 0.9 K/uL (0.1-1.0); MONOCYTES % (AUTO) 12.2 % (2.0-9.0); NEUTROPHILS # (AUTO) 4.2 K/uL (1.8-7.7); NEUTROPHILS % (AUTO) 56.6 % (40.0-70.0); PLATELET COUNT (AUTO) 276 K/uL (150-450); RED BLOOD CELL COUNT(AUTO) 4.66 MIL/uL (4.50-5.90); RED CELL DISTRIBUTION WIDTH 14.6 % (11.5-14.5)
[2020-11-23 07:52] LABS: ALANINE AMINOTRANSFERASE 63 U/L (12-78); ALBUMIN 3.2 g/dL (3.4-5.0); ALKALINE PHOSPHATASE 91 U/L (46-116); ANION GAP 11 mmol/L (8-16); ASPARTATE AMINOTRANSFERASE 30 U/L (15-37); BILIRUBIN,TOTAL 0.2 mg/dL (0.1-1.0); CARBON DIOXIDE 26 mmol/L (22-29); CHLORIDE 102 mmol/L (98-107); CHOL/HDL RATIO 4.7 (4.2-7.3); CHOLESTEROL 210 mg/dL (131-200); CREATINE KINASE, TOTAL ONLY 80 U/L (39-308); CREATININE 0.81 mg/dL (0.60-1.30); GLOMERULAR FILTR. RATE CALC > 60 mL/min (>60); GLUCOSE,RANDOM 105 mg/dL (70-110); HDL CHOLESTEROL 45 mg/dL (40-60); LDL CHOL (CALC.) 139 mg/dL (0-130); PHOSPHORUS 4.7 mg/dL (2.5-4.9); SODIUM SERUM 139 mmol/L (136-145); TOTAL PROTEIN, SERUM 7.1 g/dL (6.4-8.2); TRIGLYCERIDES 131 mg/dL (15-150); UREA NITROGEN, BLOOD 13 mg/dL (7-18)
[2020-11-23 08:59] VITALS: BP 107/64
[2020-11-23] MEDS: DOCUSATE SODIUM 100 MG CAPSULE PO SCH (09:22)
[2020-11-23] MEDS: LevETIRAcetam 500 MG TABLET PO SCH ×2 (09:23→16:36)
[2020-11-23] MEDS: OMEPRAZOLE 20 MG CAPSULE PO SCH (09:24)
[2020-11-23 16:20] VITALS: BP 116/70
[2020-11-24] MEDS: DOCUSATE SODIUM 100 MG CAPSULE PO SCH (08:08)
[2020-11-24] MEDS: OMEPRAZOLE 20 MG CAPSULE PO SCH (08:08)
[2020-11-24] MEDS: LevETIRAcetam 500 MG TABLET PO SCH ×2 (08:08→16:44)
[2020-11-24 08:53] VITALS: BP 99/59
[2020-11-24] MEDS: ESCITALOPRAM OXALATE 10 MG TABLET PO SCH (10:35)
[2020-11-24 16:33] VITALS: BP 107/74
[2020-11-24] MEDS: ZOLPIDEM TARTRATE 10 MG TABLET PO PRN (22:44)
[2020-11-25 08:31] VITALS: BP 112/71
[2020-11-25] MEDS: ESCITALOPRAM OXALATE 10 MG TABLET PO SCH (08:31)
[2020-11-25] MEDS: OMEPRAZOLE 20 MG CAPSULE PO SCH (08:31)
[2020-11-25] MEDS: DOCUSATE SODIUM 100 MG CAPSULE PO SCH (08:31)
[2020-11-25] MEDS: LevETIRAcetam 500 MG TABLET PO SCH ×2 (08:31→16:29)
[2020-11-25 16:00] VITALS: BP 121/81
[2020-11-26] MEDS: DOCUSATE SODIUM 100 MG CAPSULE PO SCH (08:45)
[2020-11-26] MEDS: OMEPRAZOLE 20 MG CAPSULE PO SCH (08:45)
[2020-11-26] MEDS: LevETIRAcetam 500 MG TABLET PO SCH ×2 (08:45→17:36)
[2020-11-26] MEDS: ESCITALOPRAM OXALATE 10 MG TABLET PO SCH (08:45)
[2020-11-26 08:47] VITALS: BP 108/53
[2020-11-26 14:29] LABS: COVID AG,FIA SOURCE NASOPHARYNGEAL
[2020-11-26 16:24] VITALS: BP 121/74
[2020-11-27 00:05] VITALS: BP 140/86
[2020-11-27] MEDS: ZOLPIDEM TARTRATE 10 MG TABLET PO PRN ×2 (00:07→22:55)
[2020-11-27] MEDS: OMEPRAZOLE 20 MG CAPSULE PO SCH (08:04)
[2020-11-27] MEDS: DOCUSATE SODIUM 100 MG CAPSULE PO SCH (08:04)
[2020-11-27] MEDS: LevETIRAcetam 500 MG TABLET PO SCH ×2 (08:04→16:45)
[2020-11-27] MEDS: ESCITALOPRAM OXALATE 10 MG TABLET PO SCH (08:04)
[2020-11-27 08:17] VITALS: BP 102/53
[2020-11-27 16:21] VITALS: BP 109/72
[2020-11-28 08:28] VITALS: BP 115/63
[2020-11-28] MEDS: LevETIRAcetam 500 MG TABLET PO SCH ×2 (09:05→17:21)
[2020-11-28] MEDS: ESCITALOPRAM OXALATE 10 MG TABLET PO SCH (09:05)
[2020-11-28] MEDS: OMEPRAZOLE 20 MG CAPSULE PO SCH (09:06)
[2020-11-28] MEDS: DOCUSATE SODIUM 100 MG CAPSULE PO SCH (09:06)
[2020-11-28 16:00] VITALS: BP 97/60
[2020-11-28] MEDS: ZOLPIDEM TARTRATE 10 MG TABLET PO PRN (22:26)
[2020-11-29 08:47] VITALS: BP 102/71
[2020-11-29] MEDS: LevETIRAcetam 500 MG TABLET PO SCH ×2 (09:46→16:27)
[2020-11-29] MEDS: ESCITALOPRAM OXALATE 10 MG TABLET PO SCH (09:46)
[2020-11-29] MEDS: OMEPRAZOLE 20 MG CAPSULE PO SCH (09:46)
[2020-11-29] MEDS: DOCUSATE SODIUM 100 MG CAPSULE PO SCH (09:46)
[2020-11-29] MEDS: MAGNESIUM OXIDE 400 MG TABLET PO SCH ×2 (09:46→16:27)
[2020-11-29 16:40] VITALS: BP 107/54
[2020-11-29] MEDS: ZOLPIDEM TARTRATE 10 MG TABLET PO PRN (22:49)
[2020-11-30 08:20] VITALS: BP 104/58
[2020-11-30] MEDS: DOCUSATE SODIUM 100 MG CAPSULE PO SCH (08:29)
[2020-11-30] MEDS: ESCITALOPRAM OXALATE 10 MG TABLET PO SCH (08:29)
[2020-11-30] MEDS: LevETIRAcetam 500 MG TABLET PO SCH ×2 (08:29→16:26)
[2020-11-30] MEDS: MAGNESIUM OXIDE 400 MG TABLET PO SCH ×2 (08:29→16:26)
[2020-11-30] MEDS: OMEPRAZOLE 20 MG CAPSULE PO SCH (08:29)
[2020-11-30 16:00] VITALS: BP 105/60
[2020-11-30] MEDS: ZOLPIDEM TARTRATE 10 MG TABLET PO PRN (22:37)
[2020-12-01 08:00] VITALS: BP 107/56
[2020-12-01] MEDS: DOCUSATE SODIUM 100 MG CAPSULE PO SCH (08:08)
[2020-12-01] MEDS: LevETIRAcetam 500 MG TABLET PO SCH ×2 (08:08→16:30)
[2020-12-01] MEDS: OMEPRAZOLE 20 MG CAPSULE PO SCH (08:08)
[2020-12-01] MEDS: MAGNESIUM OXIDE 400 MG TABLET PO SCH ×2 (08:08→16:30)
[2020-12-01] MEDS: ESCITALOPRAM OXALATE 10 MG TABLET PO SCH (08:08)
[2020-12-01 16:37] VITALS: BP 107/61
[2020-12-01] MEDS: ZOLPIDEM TARTRATE 10 MG TABLET PO PRN (21:53)
[2020-12-02 07:26] LABS: HEMATOCRIT 43.1 % (41-53); MEAN CORPUSCULAR HEMOGLOBIN 29.6 pg (26.0-34.0); MEAN CORPUSCULAR HGB CONC 32.6 G/dL (31.0-37.0); MEAN CORPUSCULAR VOLUME 91 fL (80-100); PLATELET COUNT (AUTO) 342 K/uL (150-450); RED BLOOD CELL COUNT(AUTO) 4.75 MIL/uL (4.50-5.90); RED CELL DISTRIBUTION WIDTH 14.3 % (11.5-14.5)
[2020-12-02 07:52] LABS: ANION GAP 8 mmol/L (8-16); CALCIUM, TOTAL 8.9 mg/dL (8.8-10.5); CARBON DIOXIDE 29 mmol/L (22-29); CHLORIDE 104 mmol/L (98-107); CREATININE 0.84 mg/dL (0.60-1.30); GLOMERULAR FILTR. RATE CALC > 60 mL/min (>60); GLUCOSE,RANDOM 98 mg/dL (70-110); PHOSPHORUS 4.8 mg/dL (2.5-4.9); POTASSIUM 4.5 mmol/L (3.5-5.1); SODIUM SERUM 141 mmol/L (136-145); UREA NITROGEN, BLOOD 11 mg/dL (7-18)
[2020-12-02 07:56] LABS: BAND NEUTROPHILS % (MANUAL) 2 % (0-5); LYMPHOCYTES % (MANUAL) 25 % (22-44); MONOCYTES % (MANUAL) 3 % (2-9); SEGMENTED NEUTROPHILS % 70 % (40-70)
[2020-12-02 08:00] VITALS: BP 113/66
[2020-12-02] MEDS: ESCITALOPRAM OXALATE 10 MG TABLET PO SCH (08:22)
[2020-12-02] MEDS: DOCUSATE SODIUM 100 MG CAPSULE PO SCH (08:23)
[2020-12-02] MEDS: MAGNESIUM OXIDE 400 MG TABLET PO SCH ×2 (08:23→16:09)
[2020-12-02] MEDS: OMEPRAZOLE 20 MG CAPSULE PO SCH (08:23)
[2020-12-02] MEDS: LevETIRAcetam 500 MG TABLET PO SCH ×2 (08:23→16:09)
[2020-12-02 13:49] LABS: COVID AG,FIA SOURCE NASOPHARYNGEAL
[2020-12-02 16:11] VITALS: BP 108/69
[2020-12-02] MEDS ORDERED: ESCI-8 PO (20:58)
[2020-12-02] MEDS ORDERED: LEVE500T53 PO (20:59)
[2020-12-02] MEDS: ZOLPIDEM TARTRATE 10 MG TABLET PO PRN (21:44)
== END 2020-12-03 08:50 | disposition home or self-care (01) | DRG 754 ==
LOC: 3EC 16:15 → 3EI 11-23 22:00
PROVIDERS: ADMIT Psychiatry & Neurology Psychiatry; ATTEND Psychiatry & Neurology Psychiatry
DX: F32.9 Major depressive disorder, single episode, unspecified (principal); F22 Delusional disorders; G40.909 Epilepsy, unspecified, not intractable, without status epilepticus; F10.11 Alcohol abuse, in remission; F41.9 Anxiety disorder, unspecified; Z20.822 Contact with and (suspected) exposure to COVID-19; G47.00 Insomnia, unspecified; F17.200 Nicotine dependence, unspecified, uncomplicated; K59.00 Constipation, unspecified; F12.90 Cannabis use, unspecified, uncomplicated; F25.9 Schizoaffective disorder, unspecified; F29 Unspecified psychosis not due to a substance or known physiological condition; Z79.899 Other long term (current) drug therapy
CPT/HCPCS: 80048; 80053; 80061; 82550; 83735; 84100; 85007; 85025; 85027; 87081; 93005

== ENCOUNTER 2021-01-10 21:52 | Emergency (ER) | payer MEDICAID ==
[~2021-01-10] VITALS: Ht 167.6 cm; Wt 97.7 kg
[~2021-01-10 21:52] MED LIST changes: -HEPA500018 SQ; -LEVE1000 PO; +LEVE500T53 PO
[2021-01-10] MEDS ORDERED: LevETIRAcetam 500 MG TABLET PO ONE (22:15)
[2021-01-10] MEDS ORDERED: LORazepam 1 MG TABLET PO ONE (22:15)
[2021-01-10 22:44] LABS: GLUCOSE,POINT OF CARE 100 MG/DL (70-110)
[2021-01-10 22:44] LABS: BASOPHILS % (AUTO) 0.7 % (0.0-2.0); EOSINOPHILS % (AUTO) 0.8 % (1.0-6.0); HEMATOCRIT 40.3 % (41-53); HEMOGLOBIN 13.3 g/dL (13.5-17.5); LYMPHOCYTES # (AUTO) 2.8 K/uL (1.0-4.8); MEAN CORPUSCULAR HEMOGLOBIN 29.7 pg (26.0-34.0); MEAN CORPUSCULAR VOLUME 90 fL (80-100); MONOCYTES # (AUTO) 0.7 K/uL (0.1-1.0); MONOCYTES % (AUTO) 7.6 % (2.0-9.0); NEUTROPHILS # (AUTO) 5.9 K/uL (1.8-7.7); NEUTROPHILS % (AUTO) 61.9 % (40.0-70.0); PLATELET COUNT (AUTO) 364 K/uL (150-450); RED BLOOD CELL COUNT(AUTO) 4.47 MIL/uL (4.50-5.90); RED CELL DISTRIBUTION WIDTH 15.3 % (11.5-14.5)
[2021-01-10] MEDS ORDERED: ONDANSETRON HCL 4 MG/2 ML VIAL IVP ONE (22:45)
[2021-01-10 22:58] LABS: INR 1.1 (0.9-1.1); PROTHROMBIN TIME 11.2 SEC (9.4-11.6)
[2021-01-10] MEDS ORDERED: SODIUM CHLORIDE 0.9% 1,000 ML IV ONE (23:00)
[2021-01-10 23:01] LABS: ANION GAP 15 mmol/L (8-16); CALCIUM, TOTAL 8.7 mg/dL (8.8-10.5); CARBON DIOXIDE 25 mmol/L (22-29); CHLORIDE 102 mmol/L (98-107); CREATININE 0.67 mg/dL (0.60-1.30); GLOMERULAR FILTR. RATE CALC > 60 mL/min (>60); GLUCOSE,RANDOM 104 mg/dL (70-110); POTASSIUM 3.2 mmol/L (3.5-5.1); SODIUM SERUM 142 mmol/L (136-145); UREA NITROGEN, BLOOD 3 mg/dL (7-18)
[2021-01-10 23:07] LABS: ALANINE AMINOTRANSFERASE 55 U/L (12-78); ALBUMIN 3.5 g/dL (3.4-5.0); ALKALINE PHOSPHATASE 128 U/L (46-116); ASPARTATE AMINOTRANSFERASE 32 U/L (15-37); BILIRUBIN,TOTAL 0.5 mg/dL (0.1-1.0); LIPASE 79 U/L (73-393); TOTAL PROTEIN, SERUM 7.6 g/dL (6.4-8.2)
[2021-01-10 23:47] LABS: COVID AG,FIA SOURCE NASOPHARYNGEAL
[2021-01-10 23:58] LABS: LACTIC ACID 2.8 mmol/L (0.4-2.0)
[2021-01-11] MEDS ORDERED: SODIUM CHLORIDE 0.9% 1,000 ML IV ONE (01:15)
[2021-01-11] MEDS ORDERED: THIAMINE 100 MG/ML 2 ML VIAL IVP ONE (01:15)
[2021-01-11] MEDS ORDERED: LevETIRAcetam 500 MG in DEXTROSE 5%-WATER 100 ML IV ONE (02:45)
[2021-01-11] MEDS ORDERED: POTASSIUM CHLORIDE 20 MEQ ER TABLET PO ONE (02:45)
[2021-01-11] MEDS ORDERED: KETOROLAC TROMETHAMINE 30 MG/ML VIAL IVP ONE (03:00)
[2021-01-11 04:27] LABS: AMPHET/METH SCREEN,URINE NEGATIVE (NEGATIVE); BARBITURATE SCREEN, URINE NEGATIVE (NEGATIVE); BENZODIAZEPINES SCREEN,URINE POSITIVE (NEGATIVE); CANNABINOID SCREEN,URINE NEGATIVE (NEGATIVE); COCAINE SCREEN,URINE NEGATIVE (NEGATIVE); METHADONE SCREEN, URINE NEGATIVE (NEGATIVE); OPIATE SCREEN,URINE NEGATIVE (NEGATIVE)
[2021-01-11 05:55] VITALS: BP 115/60
[2021-01-11 06:53] LABS: PHENCYCLIDINE SCREEN,URINE NEGATIVE (NEGATIVE)
== END 2021-01-11 06:22 | disposition home or self-care (01) ==
LOC: EMS 22:11
DX: R56.9 Unspecified convulsions (principal); R07.9 Chest pain, unspecified; Z20.822 Contact with and (suspected) exposure to COVID-19
CPT/HCPCS: 36415; 70450; 71045; 72125; 80053; 80307; 82962; 83605; 83690; 85025; 85610; 87426; 93005; 96361 ×2; 96374; 96375; 99285; G0480; J0712; J1885; J2405; J3411; J7030; J7060; 82948

== ENCOUNTER 2021-03-08 21:05 | Emergency (ER) | payer MEDICAID ==
[~2021-03-08] VITALS: Ht 177.8 cm; Wt 10.9 kg
[~2021-03-08 21:05] MED LIST changes: +LEVE500T20 PO; -LEVE500T53 PO
[2021-03-08] MEDS ORDERED: LevETIRAcetam 1,000 MG in DEXTROSE 5%-WATER 100 ML IV ONE (21:30)
[2021-03-08 21:43] LABS: ANION GAP 11 mmol/L (8-16); CALCIUM, TOTAL 8.6 mg/dL (8.8-10.5); CARBON DIOXIDE 25 mmol/L (22-29); CHLORIDE 103 mmol/L (98-107); CREATININE 0.91 mg/dL (0.60-1.30); GLOMERULAR FILTR. RATE CALC > 60 mL/min (>60); GLUCOSE,RANDOM 115 mg/dL (70-110); POTASSIUM 4.1 mmol/L (3.5-5.1); SODIUM SERUM 139 mmol/L (136-145); UREA NITROGEN, BLOOD 7 mg/dL (7-18)
[2021-03-08 21:49] LABS: ALANINE AMINOTRANSFERASE 66 U/L (12-78); ALBUMIN 3.8 g/dL (3.4-5.0); ALKALINE PHOSPHATASE 146 U/L (46-116); ASPARTATE AMINOTRANSFERASE 49 U/L (15-37); BILIRUBIN,TOTAL 0.3 mg/dL (0.1-1.0); TOTAL PROTEIN, SERUM 8.5 g/dL (6.4-8.2)
[2021-03-08 22:04] LABS: EOSINOPHILS % (AUTO) 0.4 % (1.0-6.0); HEMATOCRIT 41.2 % (41-53); HEMOGLOBIN 13.6 g/dL (13.5-17.5); LYMPHOCYTES # (AUTO) 1.5 K/uL (1.0-4.8); LYMPHOCYTES % (AUTO) 24.2 % (22.0-44.0); MEAN CORPUSCULAR HEMOGLOBIN 29.3 pg (26.0-34.0); MEAN CORPUSCULAR HGB CONC 33.1 G/dL (31.0-37.0); MEAN CORPUSCULAR VOLUME 88 fL (80-100); MONOCYTES # (AUTO) 0.6 K/uL (0.1-1.0); MONOCYTES % (AUTO) 9.2 % (2.0-9.0); NEUTROPHILS # (AUTO) 4.2 K/uL (1.8-7.7); NEUTROPHILS % (AUTO) 65.2 % (40.0-70.0); PLATELET COUNT (AUTO) 289 K/uL (150-450); RED BLOOD CELL COUNT(AUTO) 4.66 MIL/uL (4.50-5.90); RED CELL DISTRIBUTION WIDTH 16.5 % (11.5-14.5)
[2021-03-09 04:44] VITALS: BP 119/83
== END 2021-03-09 05:00 | disposition home or self-care (01) ==
LOC: EMS 21:11
DX: G40.909 Epilepsy, unspecified, not intractable, without status epilepticus (principal); F10.129 Alcohol abuse with intoxication, unspecified; Y90.8 Blood alcohol level of 240 mg/100 ml or more; Z79.899 Other long term (current) drug therapy
CPT/HCPCS: 70450; 80053; 85025; 96365; 99285; G0480; J0712; J7060

== ENCOUNTER 2021-03-09 06:53 | Emergency (ER) | payer MEDICAID | END 2021-03-09 07:35 | disposition left against medical advice (07) | LOC: EMS 06:56 | DX: H54.7 Unspecified visual loss (principal); Z53.21 Procedure and treatment not carried out due to patient leaving prior to being seen by health care provider ==

== ENCOUNTER 2021-06-10 19:24 | Inpatient (IN) | payer MEDICAID ==
[~2021-06-10] VITALS: Ht 167.6 cm; Wt 103.0 kg
[2021-06-10 20:15] LABS: BASOPHILS % (AUTO) 0.7 % (0.0-2.0); EOSINOPHILS % (AUTO) 0.2 % (1.0-6.0); HEMATOCRIT 37.7 % (41-53); HEMOGLOBIN 12.7 g/dL (13.5-17.5); LYMPHOCYTES # (AUTO) 1.5 K/uL (1.0-4.8); LYMPHOCYTES % (AUTO) 21.9 % (22.0-44.0); MEAN CORPUSCULAR HEMOGLOBIN 28.5 pg (26.0-34.0); MEAN CORPUSCULAR HGB CONC 33.6 G/dL (31.0-37.0); MEAN CORPUSCULAR VOLUME 85 fL (80-100); MONOCYTES # (AUTO) 0.4 K/uL (0.1-1.0); MONOCYTES % (AUTO) 6.5 % (2.0-9.0); NEUTROPHILS # (AUTO) 4.8 K/uL (1.8-7.7); NEUTROPHILS % (AUTO) 70.7 % (40.0-70.0); PLATELET COUNT (AUTO) 434 K/uL (150-450); RED BLOOD CELL COUNT(AUTO) 4.45 MIL/uL (4.50-5.90); RED CELL DISTRIBUTION WIDTH 16.3 % (11.5-14.5)
[2021-06-10 20:57] LABS: AMPHET/METH SCREEN,URINE NEGATIVE (NEGATIVE); BARBITURATE SCREEN, URINE NEGATIVE (NEGATIVE); BENZODIAZEPINES SCREEN,URINE NEGATIVE (NEGATIVE); CANNABINOID SCREEN,URINE NEGATIVE (NEGATIVE); COCAINE SCREEN,URINE NEGATIVE (NEGATIVE); METHADONE SCREEN, URINE NEGATIVE (NEGATIVE); OPIATE SCREEN,URINE NEGATIVE (NEGATIVE)
[2021-06-10 20:58] LABS: PHENCYCLIDINE SCREEN,URINE NEGATIVE (NEGATIVE)
[2021-06-10 21:42] LABS: ANION GAP 13 mmol/L (8-16); CALCIUM, TOTAL 9.2 mg/dL (8.8-10.5); CARBON DIOXIDE 25 mmol/L (22-29); CHLORIDE 104 mmol/L (98-107); CREATININE 0.79 mg/dL (0.60-1.30); GLOMERULAR FILTR. RATE CALC > 60 mL/min (>60); GLUCOSE,RANDOM 112 mg/dL (70-110); POTASSIUM 3.5 mmol/L (3.5-5.1); SODIUM SERUM 142 mmol/L (136-145); UREA NITROGEN, BLOOD 3 mg/dL (7-18)
[2021-06-10 21:47] LABS: ALANINE AMINOTRANSFERASE 76 U/L (12-78); ALBUMIN 3.7 g/dL (3.4-5.0); ALKALINE PHOSPHATASE 127 U/L (46-116); ASPARTATE AMINOTRANSFERASE 49 U/L (15-37); BILIRUBIN,TOTAL 0.6 mg/dL (0.1-1.0); TOTAL PROTEIN, SERUM 8.2 g/dL (6.4-8.2)
[2021-06-10 21:59] LABS: COVID AG,FIA SOURCE NASOPHARYNGEAL
[2021-06-11 01:47] LABS: APPEARANCE,URINE CLEAR (CLEAR); BILIRUBIN,URINE NEGATIVE (NEGATIVE); GLUCOSE, URINE (UA) NEGATIVE (NEGATIVE); KETONES,URINE NEGATIVE (NEGATIVE); LEUKOCYTE ESTERASE ,URINE NEGATIVE (NEGATIVE); NITRATE,URINE NEGATIVE (NEGATIVE); OCCULT BLOOD,URINE NEGATIVE (NEGATIVE); PROTEIN,URINE NEGATIVE (NEGATIVE); UROBILINOGEN,URINE 0.2 mg/dL (<=1.0)
[2021-06-11 01:49] LABS: CHOL/HDL RATIO 2.9 (4.2-7.3)
[2021-06-11 02:00] VITALS: BP 145/80
[2021-06-11] MEDS: LORazepam 2 MG TABLET PO PRN (02:16)
[2021-06-11] MEDS: LevETIRAcetam 500 MG TABLET PO SCH ×3 (09:00→17:00)
[2021-06-11 10:00] VITALS: BP 120/70
[2021-06-11] MEDS ORDERED: GuaiFENesin/D-METHORPHAN [SUGAR-FREE] 200-20MG/10 ML SYRUP UDCUP PO PRN (12:00)
[2021-06-11] MEDS ORDERED: MAGNESIUM HYDROXIDE SUSPENSION 30 ML UDCUP PO PRN (12:00)
[2021-06-11] MEDS ORDERED: ALBUTEROL SULFATE HFA 90 MCG/PUFF 8 GM INHALER IH PRN (12:00)
[2021-06-11] MEDS ORDERED: ONDANSETRON HCL 4 MG TABLET PO PRN (12:00)
[2021-06-11] MEDS ORDERED: DOCUSATE SODIUM 100 MG CAPSULE PO PRN (12:00)
[2021-06-11] MEDS ORDERED: MAG HYDROX/AL HYDROX/SIMETH ES 30 ML SUSPENSION UDCUP PO PRN (12:00)
[2021-06-11] MEDS ORDERED: ACETAMINOPHEN 325 MG TABLET PO PRN (12:00)
[2021-06-11] MEDS ORDERED: LOPERAMIDE HCL 2 MG CAPSULE PO PRN (12:00)
[2021-06-11] MEDS ORDERED: IBUPROFEN 400 MG TABLET PO PRN (12:00)
[2021-06-11] MEDS ORDERED: NICOTINE 14 MG/24 HOUR PATCH TD PRN (12:00)
[2021-06-11] MEDS ORDERED: CloNIDine HCL 0.1 MG TABLET PO PRN (12:00)
[2021-06-11] MEDS ORDERED: PETROLATUM,WHITE 28 GM JELLY TP PRN (12:00)
[2021-06-11 16:00] VITALS: BP 107/76
[2021-06-11] MEDS: ESCITALOPRAM OXALATE 10 MG TABLET PO SCH (20:01)
[2021-06-11] MEDS: OLANZapine 5 MG TABLET PO SCH (20:01)
[2021-06-12] MEDS: LevETIRAcetam 500 MG TABLET PO SCH ×2 (08:15→17:44)
[2021-06-12 08:22] VITALS: BP 100/57
[2021-06-12 16:11] VITALS: BP 110/69
[2021-06-12] MEDS: ZOLPIDEM TARTRATE 10 MG TABLET PO PRN (20:40)
[2021-06-12] MEDS: OLANZapine 5 MG TABLET PO SCH (20:41)
[2021-06-12] MEDS: ESCITALOPRAM OXALATE 10 MG TABLET PO SCH (20:41)
[2021-06-13] MEDS: LevETIRAcetam 500 MG TABLET PO SCH ×2 (08:24→16:35)
[2021-06-13 10:03] VITALS: BP 99/60
[2021-06-13 18:00] VITALS: BP 120/79
[2021-06-13] MEDS: ESCITALOPRAM OXALATE 10 MG TABLET PO SCH (20:11)
[2021-06-13] MEDS: OLANZapine 5 MG TABLET PO SCH (20:11)
[2021-06-14 09:19] VITALS: BP 125/68
[2021-06-14] MEDS: LevETIRAcetam 500 MG TABLET PO SCH ×2 (09:25→16:29)
[2021-06-14 16:22] VITALS: BP 128/79
[2021-06-14] MEDS: OLANZapine 5 MG TABLET PO SCH (20:51)
[2021-06-14] MEDS: ESCITALOPRAM OXALATE 10 MG TABLET PO SCH (20:51)
[2021-06-15] MEDS: LevETIRAcetam 500 MG TABLET PO SCH ×2 (07:54→16:03)
[2021-06-15 09:04] VITALS: BP 96/65
[2021-06-15 16:21] VITALS: BP 101/60
[2021-06-15] MEDS: OLANZapine 5 MG TABLET PO SCH (20:02)
[2021-06-15] MEDS: ESCITALOPRAM OXALATE 10 MG TABLET PO SCH (20:03)
[2021-06-16] MEDS: LevETIRAcetam 500 MG TABLET PO SCH ×2 (08:38→16:26)
[2021-06-16 09:46] VITALS: BP 97/62
[2021-06-16 16:04] LABS: COVID AG,FIA SOURCE NASOPHARYNGEAL
[2021-06-16 16:57] VITALS: BP 113/75
[2021-06-16] MEDS: ESCITALOPRAM OXALATE 10 MG TABLET PO SCH (20:59)
[2021-06-16] MEDS: OLANZapine 5 MG TABLET PO SCH (21:00)
[2021-06-17 08:00] VITALS: BP 112/67
[2021-06-17] MEDS: LevETIRAcetam 500 MG TABLET PO SCH ×2 (10:00→17:24)
[2021-06-17 16:55] VITALS: BP 121/70
[2021-06-17] MEDS: HALOPERIDOL 5 MG TABLET PO PRN (17:24)
[2021-06-17] MEDS: ESCITALOPRAM OXALATE 10 MG TABLET PO SCH (21:04)
[2021-06-17] MEDS: OLANZapine 5 MG TABLET PO SCH (21:04)
[2021-06-17] MEDS: LORazepam 2 MG TABLET PO PRN (21:05)
[2021-06-18 08:00] VITALS: BP 101/56
[2021-06-18] MEDS: LevETIRAcetam 500 MG TABLET PO SCH ×2 (08:03→17:07)
[2021-06-18 16:01] VITALS: BP 100/59
[2021-06-18] MEDS: HALOPERIDOL 5 MG TABLET PO PRN (17:07)
[2021-06-18] MEDS: OLANZapine 5 MG TABLET PO SCH (20:51)
[2021-06-18] MEDS: ZOLPIDEM TARTRATE 10 MG TABLET PO PRN (20:51)
[2021-06-18] MEDS: ESCITALOPRAM OXALATE 10 MG TABLET PO SCH (20:51)
[2021-06-19 08:00] VITALS: BP 111/60
[2021-06-19] MEDS: LevETIRAcetam 500 MG TABLET PO SCH ×2 (08:32→16:01)
[2021-06-19 16:11] VITALS: BP 106/75
[2021-06-19] MEDS: OLANZapine 5 MG TABLET PO SCH (20:23)
[2021-06-19] MEDS: ESCITALOPRAM OXALATE 10 MG TABLET PO SCH (20:23)
[2021-06-20 08:10] VITALS: BP 101/62
[2021-06-20] MEDS: LevETIRAcetam 500 MG TABLET PO SCH ×2 (08:48→16:11)
[2021-06-20 16:00] VITALS: BP 106/64
[2021-06-20] MEDS: OLANZapine 5 MG TABLET PO SCH (20:12)
[2021-06-20] MEDS: ESCITALOPRAM OXALATE 10 MG TABLET PO SCH (20:12)
[2021-06-21 08:26] VITALS: BP 132/90
[2021-06-21] MEDS: LevETIRAcetam 500 MG TABLET PO SCH ×2 (08:35→16:01)
[2021-06-21 16:20] VITALS: BP 112/73
[2021-06-21] MEDS: OLANZapine 5 MG TABLET PO SCH (20:11)
[2021-06-21] MEDS: ESCITALOPRAM OXALATE 10 MG TABLET PO SCH (20:11)
[2021-06-22 08:00] VITALS: BP 127/90
[2021-06-22] MEDS: LevETIRAcetam 500 MG TABLET PO SCH ×2 (08:53→16:44)
[2021-06-22 16:34] VITALS: BP 124/70
[2021-06-22] MEDS: ZOLPIDEM TARTRATE 10 MG TABLET PO PRN ×2 (20:23→22:56)
[2021-06-22] MEDS: OLANZapine 5 MG TABLET PO SCH (20:23)
[2021-06-22] MEDS: ESCITALOPRAM OXALATE 10 MG TABLET PO SCH (20:23)
[2021-06-23 08:00] VITALS: BP 105/63
[2021-06-23] MEDS: LevETIRAcetam 500 MG TABLET PO SCH ×2 (08:36→16:05)
[2021-06-23 16:00] VITALS: BP 103/64
[2021-06-23 19:05] LABS: COVID AG,FIA SOURCE NASAL SWAB
[2021-06-23] MEDS: OLANZapine 5 MG TABLET PO SCH (20:00)
[2021-06-23] MEDS: ESCITALOPRAM OXALATE 10 MG TABLET PO SCH (20:00)
[2021-06-24] MEDS: LevETIRAcetam 500 MG TABLET PO SCH ×2 (09:43→16:05)
[2021-06-24 14:12] VITALS: BP 101/60
[2021-06-24 16:11] VITALS: BP 129/81
[2021-06-24] MEDS: ESCITALOPRAM OXALATE 10 MG TABLET PO SCH (20:03)
[2021-06-24] MEDS: OLANZapine 5 MG TABLET PO SCH (20:03)
[2021-06-24] MEDS: ZOLPIDEM TARTRATE 10 MG TABLET PO PRN (22:45)
[2021-06-25 08:58] VITALS: BP 104/59
[2021-06-25] MEDS: LevETIRAcetam 500 MG TABLET PO SCH ×2 (09:17→16:56)
[2021-06-25 14:32] VITALS: BP 104/59
[2021-06-25 16:35] VITALS: BP 106/54
[2021-06-25] MEDS: HALOPERIDOL 5 MG TABLET PO PRN (16:56)
[2021-06-25] MEDS: ZOLPIDEM TARTRATE 10 MG TABLET PO PRN (20:27)
[2021-06-25] MEDS: OLANZapine 5 MG TABLET PO SCH (20:27)
[2021-06-25] MEDS: ESCITALOPRAM OXALATE 10 MG TABLET PO SCH (20:27)
[2021-06-26 08:30] VITALS: BP 96/57
[2021-06-26] MEDS: LevETIRAcetam 500 MG TABLET PO SCH ×2 (08:41→16:32)
[2021-06-26 16:17] VITALS: BP 130/80
[2021-06-26] MEDS: HALOPERIDOL 5 MG TABLET PO PRN (16:33)
[2021-06-26] MEDS: OLANZapine 5 MG TABLET PO SCH (20:45)
[2021-06-26] MEDS: ESCITALOPRAM OXALATE 10 MG TABLET PO SCH (20:45)
[2021-06-26] MEDS: ZOLPIDEM TARTRATE 10 MG TABLET PO PRN (20:45)
[2021-06-27 08:06] VITALS: BP 110/68
[2021-06-27] MEDS: LevETIRAcetam 500 MG TABLET PO SCH ×2 (08:11→16:25)
[2021-06-27 17:01] VITALS: BP 111/69
[2021-06-27] MEDS: ZOLPIDEM TARTRATE 10 MG TABLET PO PRN (20:27)
[2021-06-27] MEDS: ESCITALOPRAM OXALATE 10 MG TABLET PO SCH (20:27)
[2021-06-27] MEDS: OLANZapine 5 MG TABLET PO SCH (20:27)
[2021-06-28 08:15] VITALS: BP 121/84
[2021-06-28] MEDS: LevETIRAcetam 500 MG TABLET PO SCH ×2 (08:30→16:12)
[2021-06-28 16:00] VITALS: BP 109/65
[2021-06-28] MEDS: OLANZapine 5 MG TABLET PO SCH (20:07)
[2021-06-28] MEDS: ESCITALOPRAM OXALATE 10 MG TABLET PO SCH (20:07)
[2021-06-28] MEDS: ZOLPIDEM TARTRATE 10 MG TABLET PO PRN (21:33)
[2021-06-29] MEDS: LevETIRAcetam 500 MG TABLET PO SCH ×2 (08:23→16:03)
[2021-06-29 09:48] VITALS: BP 90/60
[2021-06-29 16:00] VITALS: BP 110/68
[2021-06-29] MEDS: ESCITALOPRAM OXALATE 10 MG TABLET PO SCH (20:10)
[2021-06-29] MEDS: OLANZapine 5 MG TABLET PO SCH (20:10)
[2021-06-29] MEDS: ZOLPIDEM TARTRATE 10 MG TABLET PO PRN (21:23)
[2021-06-30 08:00] VITALS: BP 105/62
[2021-06-30] MEDS: LevETIRAcetam 500 MG TABLET PO SCH ×2 (09:54→16:17)
[2021-06-30 16:36] VITALS: BP 104/67
[2021-06-30] MEDS: ESCITALOPRAM OXALATE 10 MG TABLET PO SCH (20:32)
[2021-06-30] MEDS: OLANZapine 5 MG TABLET PO SCH (20:32)
[2021-06-30] MEDS: ZOLPIDEM TARTRATE 10 MG TABLET PO PRN (21:02)
[2021-06-30 21:03] LABS: COVID AG,FIA SOURCE NASAL SWAB
[2021-07-01 08:36] VITALS: BP 120/84
[2021-07-01] MEDS: LevETIRAcetam 500 MG TABLET PO SCH ×2 (09:10→17:16)
[2021-07-01 16:39] VITALS: BP 129/79
[2021-07-01] MEDS: HALOPERIDOL 5 MG TABLET PO PRN (17:16)
[2021-07-01] MEDS: ZOLPIDEM TARTRATE 10 MG TABLET PO PRN (21:02)
[2021-07-01] MEDS: OLANZapine 5 MG TABLET PO SCH (21:02)
[2021-07-01] MEDS: ESCITALOPRAM OXALATE 10 MG TABLET PO SCH (21:02)
[2021-07-02 08:00] VITALS: BP 147/96
[2021-07-02] MEDS: LevETIRAcetam 500 MG TABLET PO SCH ×2 (08:11→16:52)
[2021-07-02 16:00] VITALS: BP 108/65
[2021-07-02] MEDS: HALOPERIDOL 5 MG TABLET PO PRN (16:52)
[2021-07-02] MEDS: OLANZapine 5 MG TABLET PO SCH (21:06)
[2021-07-02] MEDS: ZOLPIDEM TARTRATE 10 MG TABLET PO PRN (21:06)
[2021-07-02] MEDS: ESCITALOPRAM OXALATE 10 MG TABLET PO SCH (21:06)
[2021-07-02 23:47] LABS: COVID AG,FIA SOURCE NASAL SWAB
[2021-07-03] MEDS: LevETIRAcetam 500 MG TABLET PO SCH ×2 (09:37→16:55)
[2021-07-03 17:15] VITALS: BP 139/91
[2021-07-03] MEDS: OLANZapine 5 MG TABLET PO SCH (20:41)
[2021-07-03] MEDS: ESCITALOPRAM OXALATE 10 MG TABLET PO SCH (20:41)
[2021-07-03] MEDS: ZOLPIDEM TARTRATE 10 MG TABLET PO PRN (20:42)
[2021-07-04] MEDS: LevETIRAcetam 500 MG TABLET PO SCH ×2 (08:12→16:59)
[2021-07-04 09:19] VITALS: BP 121/76
[2021-07-04 16:33] VITALS: BP 105/67
[2021-07-04] MEDS: HALOPERIDOL 5 MG TABLET PO PRN (16:59)
[2021-07-04] MEDS: OLANZapine 5 MG TABLET PO SCH (20:30)
[2021-07-04] MEDS: ZOLPIDEM TARTRATE 10 MG TABLET PO PRN (20:30)
[2021-07-04] MEDS: ESCITALOPRAM OXALATE 10 MG TABLET PO SCH (20:30)
[2021-07-05] MEDS: LevETIRAcetam 500 MG TABLET PO SCH ×2 (08:57→16:54)
[2021-07-05 10:06] VITALS: BP 97/57
[2021-07-05 16:54] VITALS: BP 106/70
[2021-07-05] MEDS: HALOPERIDOL 5 MG TABLET PO PRN (16:54)
[2021-07-05] MEDS: ESCITALOPRAM OXALATE 10 MG TABLET PO SCH (20:25)
[2021-07-05] MEDS: OLANZapine 5 MG TABLET PO SCH (20:26)
[2021-07-05] MEDS: ZOLPIDEM TARTRATE 10 MG TABLET PO PRN (20:26)
[2021-07-06] MEDS: LevETIRAcetam 500 MG TABLET PO SCH ×2 (08:23→17:09)
[2021-07-06 09:35] VITALS: BP 90/55
[2021-07-06 17:07] VITALS: BP 125/73
[2021-07-06] MEDS: HALOPERIDOL 5 MG TABLET PO PRN (17:09)
[2021-07-06] MEDS: ESCITALOPRAM OXALATE 10 MG TABLET PO SCH (20:22)
[2021-07-06] MEDS: OLANZapine 5 MG TABLET PO SCH (20:22)
[2021-07-06] MEDS: ZOLPIDEM TARTRATE 10 MG TABLET PO PRN (20:22)
[2021-07-07] MEDS: LevETIRAcetam 500 MG TABLET PO SCH (09:00)
[2021-07-07 10:19] VITALS: BP 18/104
[2021-07-07] MEDS ORDERED: ESCI-8 PO (15:55)
[2021-07-07] MEDS ORDERED: OLAN5TAB52 PO (15:55)
[2021-07-07 16:35] VITALS: BP 110/77
== END 2021-07-07 16:15 | disposition home or self-care (01) | DRG 750 ==
LOC: EMS 19:25 → 3EI 06-11 01:48
PROVIDERS: ADMIT Psychiatry & Neurology Child & Adolescent Psychiatry; ATTEND Psychiatry & Neurology Child & Adolescent Psychiatry
DX: F25.1 Schizoaffective disorder, depressive type (principal); R45.851 Suicidal ideations; F10.99 Alcohol use, unspecified with unspecified alcohol-induced disorder; F32.9 Major depressive disorder, single episode, unspecified; G40.909 Epilepsy, unspecified, not intractable, without status epilepticus; E66.9 Obesity, unspecified; D64.9 Anemia, unspecified; F43.10 Post-traumatic stress disorder, unspecified; F41.9 Anxiety disorder, unspecified; R73.9 Hyperglycemia, unspecified; Z20.822 Contact with and (suspected) exposure to COVID-19; Y90.9 Presence of alcohol in blood, level not specified; Z59.00 Homelessness unspecified; Z68.36 Body mass index [BMI] 36.0-36.9, adult
CPT/HCPCS: 80053; 80061; 81003; 85025; 99285; G0480

== ENCOUNTER 2021-08-25 22:28 | Inpatient (IN) | payer MEDICAID, OTHER ==
[~2021-08-25] VITALS: Ht 167.6 cm; Wt 102.0 kg
[~2021-08-25 22:28] MED LIST changes: +OLAN5TAB52 PO
[2021-08-25 23:38] LABS: BASOPHILS % (AUTO) 1.1 % (0.0-2.0); EOSINOPHILS % (AUTO) 0.9 % (1.0-6.0); HEMOGLOBIN 11.4 g/dL (13.5-17.5); LYMPHOCYTES # (AUTO) 2.5 K/uL (1.0-4.8); LYMPHOCYTES % (AUTO) 51.2 % (22.0-44.0); MEAN CORPUSCULAR HEMOGLOBIN 26.5 pg (26.0-34.0); MEAN CORPUSCULAR HGB CONC 33.5 G/dL (31.0-37.0); MEAN CORPUSCULAR VOLUME 79 fL (80-100); MONOCYTES # (AUTO) 0.3 K/uL (0.1-1.0); MONOCYTES % (AUTO) 5.6 % (2.0-9.0); NEUTROPHILS % (AUTO) 41.2 % (40.0-70.0); PLATELET COUNT (AUTO) 401 K/uL (150-450); RED CELL DISTRIBUTION WIDTH 20.5 % (11.5-14.5)
[2021-08-25 23:46] LABS: ANION GAP 12 mmol/L (8-16); CARBON DIOXIDE 26 mmol/L (22-29); CHLORIDE 101 mmol/L (98-107); CREATININE 0.78 mg/dL (0.60-1.30); GLOMERULAR FILTR. RATE CALC > 60 mL/min (>60); GLUCOSE,RANDOM 108 mg/dL (70-110); POTASSIUM 3.1 mmol/L (3.5-5.1); SODIUM SERUM 139 mmol/L (136-145); UREA NITROGEN, BLOOD 5 mg/dL (7-18)
[2021-08-25 23:52] LABS: ALANINE AMINOTRANSFERASE 61 U/L (12-78); ALBUMIN 3.4 g/dL (3.4-5.0); ALKALINE PHOSPHATASE 121 U/L (46-116); ASPARTATE AMINOTRANSFERASE 45 U/L (15-37); BILIRUBIN,TOTAL 0.2 mg/dL (0.1-1.0); TOTAL PROTEIN, SERUM 7.7 g/dL (6.4-8.2)
[2021-08-26] MEDS ORDERED: LevETIRAcetam 1,000 MG in DEXTROSE 5%-WATER 100 ML IV ONE (02:00)
[2021-08-26] MEDS ORDERED: LORazepam 2 MG/ML VIAL IVP ONE (02:00)
[2021-08-26] MEDS ORDERED: MAGNESIUM SULFATE 2 GM, MVI, ADULT NO.1 WITH VIT K 10 ML, THIAMINE 100 MG, FOLIC ACID 1... IV ONE ×5 (02:00)
[2021-08-26 02:09] LABS: COVID AG,FIA SOURCE NASAL SWAB
[2021-08-26] MEDS ORDERED: ONDANSETRON HCL 4 MG/2 ML VIAL IVP PRN ×2 (02:15→23:00)
[2021-08-26] MEDS ORDERED: 0.9% SODIUM CHLORIDE 10 ML SYRINGE IVP PRN (02:15)
[2021-08-26] MEDS ORDERED: ACETAMINOPHEN 325 MG TABLET PO PRN ×2 (02:15→23:00)
[2021-08-26 03:30] VITALS: BP 106/63
[2021-08-26 10:45] LABS: AMPHET/METH SCREEN,URINE NEGATIVE (NEGATIVE); BARBITURATE SCREEN, URINE NEGATIVE (NEGATIVE); BENZODIAZEPINES SCREEN,URINE NEGATIVE (NEGATIVE); CANNABINOID SCREEN,URINE NEGATIVE (NEGATIVE); COCAINE SCREEN,URINE NEGATIVE (NEGATIVE); METHADONE SCREEN, URINE NEGATIVE (NEGATIVE); OPIATE SCREEN,URINE NEGATIVE (NEGATIVE)
[2021-08-26 10:47] LABS: PHENCYCLIDINE SCREEN,URINE NEGATIVE (NEGATIVE)
[2021-08-26] MEDS: ChlordiazePOXIDE HCL 25 MG CAPSULE PO PRN ×2 (12:35→17:11)
[2021-08-26] MEDS: 1: MAGNESIUM SULFATE 2 GM, MVI, ADULT NO.1 WITH VIT K 10 ML, THIAMINE 100 MG, FOLIC ACID IV SCH ×5 (12:36)
[2021-08-26] MEDS ORDERED: OLANZapine 5 MG RAPDIS TABLET PO PRN (16:30)
[2021-08-26 18:08] VITALS: BP 106/63
[2021-08-26 19:15] VITALS: BP 113/67
[2021-08-26] MEDS: OLANZapine 5 MG RAPDIS TABLET PO SCH (21:37)
[2021-08-26] MEDS: MELATONIN 5 MG TABLET PO SCH (21:37)
[2021-08-26] MEDS: PARoxetine HCL 20 MG TABLET PO SCH (21:37)
[2021-08-26] MEDS: GABAPENTIN 300 MG CAPSULE PO SCH (21:37)
[2021-08-26] MEDS ORDERED: MAGNESIUM HYDROXIDE SUSPENSION 30 ML UDCUP PO PRN (23:00)
[2021-08-26] MEDS ORDERED: ZOLPIDEM TARTRATE 5 MG TABLET PO PRN (23:00)
[2021-08-26] MEDS ORDERED: IPRATROPIUM BROMIDE 0.5 MG/2.5 ML NEB SOLUTION NEB PRN (23:00)
[2021-08-26] MEDS ORDERED: BISACODYL 10 MG RECTAL RECTAL SUPPOSITORY PR PRN (23:00)
[2021-08-26] MEDS ORDERED: ALBUTEROL SULFATE 2.5 MG/0.5 ML NEB SOLUTION NEB PRN (23:00)
[2021-08-27] VITALS: BP 115/50
[2021-08-27] MEDS: HEPARIN SODIUM,PORCINE 5,000 UNITS/ML VIAL SQ SCH ×3 (00:04→16:00)
[2021-08-27] MEDS: 1: MAGNESIUM SULFATE 2 GM, MVI, ADULT NO.1 WITH VIT K 10 ML, THIAMINE 100 MG, FOLIC ACID IV SCH ×10 (01:53→15:31)
[2021-08-27 05:20] VITALS: BP 119/74
[2021-08-27] MEDS ORDERED: ChlordiazePOXIDE HCL 25 MG CAPSULE PO PRN (07:00)
[2021-08-27] MEDS: ChlordiazePOXIDE HCL 25 MG CAPSULE PO SCH ×4 (09:07→22:27)
[2021-08-27] MEDS: PANTOPRAZOLE SODIUM 40 MG/VIAL IVP SCH (09:09)
[2021-08-27] MEDS: OMEGA-3/DHA/EPA/FISH OIL 1,000 MG CAPSULE PO SCH (09:10)
[2021-08-27] MEDS: GABAPENTIN 300 MG CAPSULE PO SCH ×4 (09:10→22:30)
[2021-08-27] MEDS: DOCUSATE SODIUM 100 MG CAPSULE PO SCH ×2 (09:10→22:24)
[2021-08-27] MEDS: NALTREXONE HCL 50 MG TABLET PO SCH (09:12)
[2021-08-27 09:14] VITALS: BP 106/69
[2021-08-27 13:02] VITALS: BP 106/69
[2021-08-27 15:08] VITALS: BP 121/68
[2021-08-27 20:04] VITALS: BP 122/60
[2021-08-27] MEDS: MELATONIN 5 MG TABLET PO SCH (22:24)
[2021-08-27] MEDS: LevETIRAcetam 500 MG TABLET PO SCH (22:24)
[2021-08-27] MEDS: OLANZapine 5 MG RAPDIS TABLET PO SCH (22:27)
[2021-08-27] MEDS: PARoxetine HCL 20 MG TABLET PO SCH (22:28)
[2021-08-28 04:32] VITALS: BP 120/74
[2021-08-28] MEDS: 1: MAGNESIUM SULFATE 2 GM, MVI, ADULT NO.1 WITH VIT K 10 ML, THIAMINE 100 MG, FOLIC ACID IV SCH ×10 (05:05→17:24)
[2021-08-28 08:00] VITALS: BP 126/76
[2021-08-28] MEDS: HEPARIN SODIUM,PORCINE 5,000 UNITS/ML VIAL SQ SCH ×4 (08:00→23:44)
[2021-08-28] MEDS: PANTOPRAZOLE SODIUM 40 MG/VIAL IVP SCH (08:13)
[2021-08-28] MEDS: NALTREXONE HCL 50 MG TABLET PO SCH (08:13)
[2021-08-28] MEDS: OMEGA-3/DHA/EPA/FISH OIL 1,000 MG CAPSULE PO SCH (08:13)
[2021-08-28] MEDS: GABAPENTIN 300 MG CAPSULE PO SCH ×4 (08:13→20:32)
[2021-08-28] MEDS: LevETIRAcetam 500 MG TABLET PO SCH ×2 (08:13→20:33)
[2021-08-28] MEDS: ChlordiazePOXIDE HCL 25 MG CAPSULE PO SCH ×4 (08:13→20:32)
[2021-08-28] MEDS: DOCUSATE SODIUM 100 MG CAPSULE PO SCH ×2 (08:17→20:33)
[2021-08-28 12:38] VITALS: BP 104/63
[2021-08-28 15:26] VITALS: BP 121/68
[2021-08-28] MEDS ORDERED: SODIUM CHLORIDE 0.9% 1,000 ML ONE (17:21)
[2021-08-28 19:54] VITALS: BP 114/58
[2021-08-28] MEDS: PARoxetine HCL 20 MG TABLET PO SCH (20:33)
[2021-08-28] MEDS: MELATONIN 5 MG TABLET PO SCH (20:33)
[2021-08-28] MEDS: OLANZapine 5 MG RAPDIS TABLET PO SCH (20:35)
[2021-08-29 04:31] VITALS: BP 109/75
[2021-08-29] MEDS: 1: MAGNESIUM SULFATE 2 GM, MVI, ADULT NO.1 WITH VIT K 10 ML, THIAMINE 100 MG, FOLIC ACID IV SCH ×10 (06:25→20:38)
[2021-08-29] MEDS ORDERED: ChlordiazePOXIDE HCL 10 MG CAPSULE PO PRN (07:00)
[2021-08-29] MEDS: HEPARIN SODIUM,PORCINE 5,000 UNITS/ML VIAL SQ SCH ×2 (08:00→16:00)
[2021-08-29] MEDS: DOCUSATE SODIUM 100 MG CAPSULE PO SCH (09:00)
[2021-08-29 09:09] VITALS: BP 103/59
[2021-08-29] MEDS: OMEGA-3/DHA/EPA/FISH OIL 1,000 MG CAPSULE PO SCH (09:44)
[2021-08-29] MEDS: NALTREXONE HCL 50 MG TABLET PO SCH (09:44)
[2021-08-29] MEDS: LevETIRAcetam 500 MG TABLET PO SCH ×2 (09:44→20:25)
[2021-08-29] MEDS: PANTOPRAZOLE SODIUM 40 MG/VIAL IVP SCH (09:44)
[2021-08-29] MEDS: ChlordiazePOXIDE HCL 10 MG CAPSULE PO SCH ×4 (09:45→20:25)
[2021-08-29] MEDS: GABAPENTIN 300 MG CAPSULE PO SCH ×4 (09:45→20:26)
[2021-08-29 10:00] VITALS: BP 103/59
[2021-08-29 17:24] VITALS: BP 117/66
[2021-08-29 20:22] VITALS: BP 121/78
[2021-08-29] MEDS: OLANZapine 5 MG RAPDIS TABLET PO SCH (20:26)
[2021-08-29] MEDS: MELATONIN 5 MG TABLET PO SCH (20:26)
[2021-08-29] MEDS: PARoxetine HCL 20 MG TABLET PO SCH (20:26)
[2021-08-29] MEDS ORDERED: SODIUM CHLORIDE 0.9% 1,000 ML ONE (20:33)
[2021-08-30 05:28] VITALS: BP 111/62
[2021-08-30] MEDS ORDERED: ChlordiazePOXIDE HCL 10 MG CAPSULE PO PRN (07:00)
[2021-08-30 08:00] VITALS: BP 116/58
[2021-08-30] MEDS: HEPARIN SODIUM,PORCINE 5,000 UNITS/ML VIAL SQ SCH ×3 (08:00→15:51)
[2021-08-30] MEDS: PANTOPRAZOLE SODIUM 40 MG/VIAL IVP SCH (08:37)
[2021-08-30] MEDS: GABAPENTIN 300 MG CAPSULE PO SCH ×4 (08:37→20:19)
[2021-08-30] MEDS: OMEGA-3/DHA/EPA/FISH OIL 1,000 MG CAPSULE PO SCH (08:37)
[2021-08-30] MEDS: NALTREXONE HCL 50 MG TABLET PO SCH (08:37)
[2021-08-30] MEDS: LevETIRAcetam 500 MG TABLET PO SCH ×2 (08:37→20:20)
[2021-08-30 11:25] LABS: BASOPHILS % (AUTO) 0.6 % (0.0-2.0); EOSINOPHILS % (AUTO) 2.8 % (1.0-6.0); HEMATOCRIT 35.8 % (41-53); HEMOGLOBIN 11.6 g/dL (13.5-17.5); LYMPHOCYTES # (AUTO) 1.8 K/uL (1.0-4.8); LYMPHOCYTES % (AUTO) 29.5 % (22.0-44.0); MEAN CORPUSCULAR HEMOGLOBIN 26.3 pg (26.0-34.0); MEAN CORPUSCULAR HGB CONC 32.6 G/dL (31.0-37.0); MEAN CORPUSCULAR VOLUME 81 fL (80-100); MONOCYTES # (AUTO) 0.6 K/uL (0.1-1.0); MONOCYTES % (AUTO) 10.4 % (2.0-9.0); NEUTROPHILS # (AUTO) 3.4 K/uL (1.8-7.7); NEUTROPHILS % (AUTO) 56.7 % (40.0-70.0); PLATELET COUNT (AUTO) 292 K/uL (150-450); RED BLOOD CELL COUNT(AUTO) 4.43 MIL/uL (4.50-5.90); RED CELL DISTRIBUTION WIDTH 20.3 % (11.5-14.5)
[2021-08-30 12:01] LABS: ALANINE AMINOTRANSFERASE 82 U/L (12-78); ALBUMIN 3.1 g/dL (3.4-5.0); ALKALINE PHOSPHATASE 88 U/L (46-116); ANION GAP 12 mmol/L (8-16); ASPARTATE AMINOTRANSFERASE 44 U/L (15-37); BILIRUBIN,TOTAL 0.2 mg/dL (0.1-1.0); CALCIUM, TOTAL 8.6 mg/dL (8.8-10.5); CARBON DIOXIDE 23 mmol/L (22-29); CHLORIDE 106 mmol/L (98-107); CREATININE 0.73 mg/dL (0.60-1.30); GLOMERULAR FILTR. RATE CALC > 60 mL/min (>60); GLUCOSE,RANDOM 118 mg/dL (70-110); SODIUM SERUM 141 mmol/L (136-145); TOTAL PROTEIN, SERUM 7.3 g/dL (6.4-8.2); UREA NITROGEN, BLOOD 7 mg/dL (7-18)
[2021-08-30 15:00] VITALS: BP 130/78
[2021-08-30] MEDS: OLANZapine 5 MG RAPDIS TABLET PO SCH (20:19)
[2021-08-30] MEDS: PARoxetine HCL 20 MG TABLET PO SCH (20:19)
[2021-08-30] MEDS: MELATONIN 5 MG TABLET PO SCH (20:19)
[2021-08-30 20:21] VITALS: BP 125/75
[2021-08-31 04:13] VITALS: BP 103/64
[2021-08-31] MEDS: HEPARIN SODIUM,PORCINE 5,000 UNITS/ML VIAL SQ SCH ×3 (08:00→16:00)
[2021-08-31 08:21] VITALS: BP 91/55
[2021-08-31] MEDS: GABAPENTIN 300 MG CAPSULE PO SCH ×4 (08:49→20:23)
[2021-08-31] MEDS: LevETIRAcetam 500 MG TABLET PO SCH ×2 (08:49→20:23)
[2021-08-31] MEDS: OMEGA-3/DHA/EPA/FISH OIL 1,000 MG CAPSULE PO SCH (08:49)
[2021-08-31] MEDS: NALTREXONE HCL 50 MG TABLET PO SCH (08:50)
[2021-08-31] MEDS: PANTOPRAZOLE SODIUM 40 MG/VIAL IVP SCH (11:01)
[2021-08-31 16:13] VITALS: BP 126/81
[2021-08-31 19:50] VITALS: BP 125/72
[2021-08-31] MEDS: MELATONIN 5 MG TABLET PO SCH (20:23)
[2021-08-31] MEDS: OLANZapine 5 MG RAPDIS TABLET PO SCH (20:23)
[2021-08-31] MEDS: PARoxetine HCL 20 MG TABLET PO SCH (20:23)
[2021-09-01 04:10] VITALS: BP 93/75
[2021-09-01 07:47] VITALS: BP 102/66
[2021-09-01] MEDS: HEPARIN SODIUM,PORCINE 5,000 UNITS/ML VIAL SQ SCH ×3 (08:00→09:43)
[2021-09-01] MEDS: OMEGA-3/DHA/EPA/FISH OIL 1,000 MG CAPSULE PO SCH (09:44)
[2021-09-01] MEDS: LevETIRAcetam 500 MG TABLET PO SCH (09:44)
[2021-09-01] MEDS: PANTOPRAZOLE SODIUM 40 MG/VIAL IVP SCH (09:44)
[2021-09-01] MEDS: GABAPENTIN 300 MG CAPSULE PO SCH ×2 (09:45→12:49)
[2021-09-01] MEDS: NALTREXONE HCL 50 MG TABLET PO SCH (09:45)
[2021-09-01] MEDS ORDERED: OLAN5TAB94 PO (12:52)
[2021-09-01] MEDS ORDERED: NALT50TA PO (12:52)
[2021-09-01] MEDS ORDERED: PARO-37 PO (12:52)
[2021-09-01] MEDS ORDERED: OMEG-108 PO (12:52)
[2021-09-01] MEDS ORDERED: GABA-1181 PO (12:52)
[2021-09-01] MEDS ORDERED: LEVE500T8 PO (12:52)
[2021-09-01] MEDS ORDERED: MELA5TAB40 PO (12:52)
== END 2021-09-01 14:55 | disposition home or self-care (01) | DRG 53 ==
LOC: EMS 23:18 → 6N 08-26 02:00 → UNDOADMIN 08-26 03:23 → 6N 08-26 03:23 → 6S 08-26 17:07 → UNDODISIN 09-01 14:55
PROVIDERS: ADMIT Hospitalist; ATTEND Hospitalist
DX: G40.909 Epilepsy, unspecified, not intractable, without status epilepticus (principal); R45.851 Suicidal ideations; K70.30 Alcoholic cirrhosis of liver without ascites; F43.10 Post-traumatic stress disorder, unspecified; F32.9 Major depressive disorder, single episode, unspecified; F60.0 Paranoid personality disorder; J44.9 Chronic obstructive pulmonary disease, unspecified; F10.120 Alcohol abuse with intoxication, uncomplicated; F10.139 Alcohol abuse with withdrawal, unspecified; F41.9 Anxiety disorder, unspecified; Z20.822 Contact with and (suspected) exposure to COVID-19; Z79.899 Other long term (current) drug therapy; Z87.891 Personal history of nicotine dependence; Z59.02 Unsheltered homelessness
CPT/HCPCS: 80053; 85025; 87081; 99285; C9113; G0480; J0712; J1644; J2060; J3411; J3475; J3490; J7030; J7060; Q9967

== ENCOUNTER 2021-12-17 02:08 | Emergency (ER) | payer MEDICAID, OTHER ==
[~2021-12-17] VITALS: Ht 167.6 cm; Wt 113.6 kg
[~2021-12-17 02:08] MED LIST changes: -ESCI-8 PO; +GABA-1181 PO; -LEVE500T20 PO; +LEVE500T8 PO; +MELA5TAB40 PO; +NALT50TA PO; -OLAN5TAB52 PO; +OLAN5TAB94 PO; +OMEG-108 PO; +PARO-37 PO
[2021-12-17 04:23] LABS: COVID AG,FIA SOURCE NASOPHARYNGEAL
[2021-12-17 04:27] LABS: EOSINOPHILS % (AUTO) 2.6 % (1.0-6.0); HEMATOCRIT 36.4 % (41-53); HEMOGLOBIN 12.1 g/dL (13.5-17.5); LYMPHOCYTES # (AUTO) 2.4 K/uL (1.0-4.8); LYMPHOCYTES % (AUTO) 46.9 % (22.0-44.0); MEAN CORPUSCULAR HEMOGLOBIN 27.1 pg (26.0-34.0); MEAN CORPUSCULAR HGB CONC 33.2 G/dL (31.0-37.0); MEAN CORPUSCULAR VOLUME 82 fL (80-100); MONOCYTES # (AUTO) 0.5 K/uL (0.1-1.0); MONOCYTES % (AUTO) 8.8 % (2.0-9.0); NEUTROPHILS # (AUTO) 2.1 K/uL (1.8-7.7); NEUTROPHILS % (AUTO) 40.7 % (40.0-70.0); PLATELET COUNT (AUTO) 316 K/uL (150-450); RED BLOOD CELL COUNT(AUTO) 4.44 MIL/uL (4.50-5.90); RED CELL DISTRIBUTION WIDTH 17.9 % (11.5-14.5)
[2021-12-17 04:37] LABS: ANION GAP 11 mmol/L (8-16); CALCIUM, TOTAL 8.5 mg/dL (8.8-10.5); CARBON DIOXIDE 24 mmol/L (22-29); CHLORIDE 105 mmol/L (98-107); CREATININE 0.71 mg/dL (0.60-1.30); GLOMERULAR FILTR. RATE CALC > 60 mL/min (>60); GLUCOSE,RANDOM 105 mg/dL (70-110); POTASSIUM 3.7 mmol/L (3.5-5.1); SODIUM SERUM 140 mmol/L (136-145); UREA NITROGEN, BLOOD 4 mg/dL (7-18)
[2021-12-17 04:43] LABS: ALANINE AMINOTRANSFERASE 86 U/L (12-78); ALBUMIN 3.2 g/dL (3.4-5.0); ALKALINE PHOSPHATASE 105 U/L (46-116); ASPARTATE AMINOTRANSFERASE 38 U/L (15-37); BILIRUBIN,TOTAL 0.2 mg/dL (0.1-1.0)
[2021-12-17 05:07] VITALS: BP 110/70
== END 2021-12-17 06:02 | disposition home or self-care (01) ==
LOC: EMS 02:09
DX: F32.9 Major depressive disorder, single episode, unspecified (principal); F10.20 Alcohol dependence, uncomplicated; F41.9 Anxiety disorder, unspecified; Z86.69 Personal history of other diseases of the nervous system and sense organs; Z86.59 Personal history of other mental and behavioral disorders; Z20.822 Contact with and (suspected) exposure to COVID-19
CPT/HCPCS: 99285; 87426; 80053; 85025; 36415; G0480

== ENCOUNTER 2022-03-30 17:37 | Inpatient (IN) | payer MEDICAID, OTHER ==
[~2022-03-30] VITALS: Ht 167.6 cm; Wt 105.0 kg
[~2022-03-30 17:37] MED LIST changes: -OMEG-108 PO; +OMEG-135 PO
[2022-03-30] MEDS ORDERED: LevETIRAcetam 1,500 MG in DEXTROSE 5%-WATER 100 ML IV ONE (17:45)
[2022-03-30 18:01] LABS: BASOPHILS % (AUTO) 0.9 % (0.0-2.0); EOSINOPHILS % (AUTO) 0.7 % (1.0-6.0); HEMATOCRIT 39.3 % (41-53); HEMOGLOBIN 12.8 g/dL (13.5-17.5); LYMPHOCYTES # (AUTO) 1.7 K/uL (1.0-4.8); LYMPHOCYTES % (AUTO) 28.5 % (22.0-44.0); MEAN CORPUSCULAR HEMOGLOBIN 28.4 pg (26.0-34.0); MEAN CORPUSCULAR HGB CONC 32.7 G/dL (31.0-37.0); MEAN CORPUSCULAR VOLUME 87 fL (80-100); MONOCYTES # (AUTO) 0.6 K/uL (0.1-1.0); MONOCYTES % (AUTO) 9.6 % (2.0-9.0); NEUTROPHILS # (AUTO) 3.6 K/uL (1.8-7.7); NEUTROPHILS % (AUTO) 60.3 % (40.0-70.0); PLATELET COUNT (AUTO) 251 K/uL (150-450); RED BLOOD CELL COUNT(AUTO) 4.53 MIL/uL (4.50-5.90); RED CELL DISTRIBUTION WIDTH 18.4 % (11.5-14.5)
[2022-03-30 18:11] LABS: ANION GAP 17 mmol/L (8-16); CALCIUM, TOTAL 8.9 mg/dL (8.8-10.5); CARBON DIOXIDE 23 mmol/L (22-29); CHLORIDE 103 mmol/L (98-107); CREATININE 0.96 mg/dL (0.60-1.30); GLOMERULAR FILTR. RATE CALC > 60 mL/min (>60); GLUCOSE,RANDOM 113 mg/dL (70-110); POTASSIUM 3.2 mmol/L (3.5-5.1); SODIUM SERUM 143 mmol/L (136-145); UREA NITROGEN, BLOOD 4 mg/dL (7-18)
[2022-03-30 18:17] LABS: ALANINE AMINOTRANSFERASE 61 U/L (12-78); ALBUMIN 3.4 g/dL (3.4-5.0); ALKALINE PHOSPHATASE 112 U/L (46-116); ASPARTATE AMINOTRANSFERASE 58 U/L (15-37); BILIRUBIN,TOTAL 0.2 mg/dL (0.1-1.0); TOTAL PROTEIN, SERUM 7.5 g/dL (6.4-8.2)
[2022-03-30 18:55] LABS: COVID AG,FIA SOURCE NASOPHARYNGEAL
[2022-03-30] MEDS ORDERED: ACETAMINOPHEN 325 MG TABLET PO PRN ×2 (20:30→21:00)
[2022-03-30] MEDS ORDERED: 0.9% SODIUM CHLORIDE 10 ML SYRINGE IVP PRN (20:30)
[2022-03-30] MEDS ORDERED: ONDANSETRON HCL 4 MG/2 ML VIAL IVP PRN ×2 (20:30→21:00)
[2022-03-30] MEDS: GABAPENTIN 300 MG CAPSULE PO SCH (21:19)
[2022-03-30] MEDS ORDERED: POTASSIUM CHLORIDE 10% 40 MEQ/30 ML LIQUID UDCUP PO ONE (22:45)
[2022-03-30] MEDS ORDERED: LORazepam 2 MG TABLET PO PRN (22:45)
[2022-03-30] MEDS: PANTOPRAZOLE SODIUM 40 MG/VIAL IVP SCH (23:00)
[2022-03-30] MEDS: HEPARIN SODIUM,PORCINE 5,000 UNITS/ML VIAL SQ SCH ×2 (23:02→23:13)
[2022-03-31 00:41] LABS: HEMATOCRIT 37.2 % (41-53); HEMOGLOBIN 12.3 g/dL (13.5-17.5)
[2022-03-31] MEDS ORDERED: LORazepam 2 MG TABLET PO PRN (07:00)
[2022-03-31 07:02] LABS: BASOPHILS % (AUTO) 0.4 % (0.0-2.0); EOSINOPHILS % (AUTO) 2.7 % (1.0-6.0); HEMATOCRIT 37.4 % (41-53); HEMOGLOBIN 12.2 g/dL (13.5-17.5); LYMPHOCYTES # (AUTO) 1.8 K/uL (1.0-4.8); LYMPHOCYTES % (AUTO) 44.2 % (22.0-44.0); MEAN CORPUSCULAR HEMOGLOBIN 28.6 pg (26.0-34.0); MEAN CORPUSCULAR HGB CONC 32.8 G/dL (31.0-37.0); MEAN CORPUSCULAR VOLUME 87 fL (80-100); MONOCYTES # (AUTO) 0.6 K/uL (0.1-1.0); NEUTROPHILS # (AUTO) 1.5 K/uL (1.8-7.7); NEUTROPHILS % (AUTO) 37.7 % (40.0-70.0); PLATELET COUNT (AUTO) 209 K/uL (150-450); RED BLOOD CELL COUNT(AUTO) 4.29 MIL/uL (4.50-5.90); RED CELL DISTRIBUTION WIDTH 18.2 % (11.5-14.5)
[2022-03-31 07:17] LABS: ANION GAP 10 mmol/L (8-16); CALCIUM, TOTAL 8.2 mg/dL (8.8-10.5); CARBON DIOXIDE 25 mmol/L (22-29); CHLORIDE 105 mmol/L (98-107); CREATININE 0.75 mg/dL (0.60-1.30); GLUCOSE,RANDOM 96 mg/dL (70-110); POTASSIUM 3.5 mmol/L (3.5-5.1); SODIUM SERUM 140 mmol/L (136-145); UREA NITROGEN, BLOOD 4 mg/dL (7-18)
[2022-03-31 07:19] LABS: GLOMERULAR FILTR. RATE CALC > 60 mL/min (>60)
[2022-03-31 08:30] VITALS: BP 103/61
[2022-03-31] MEDS: GABAPENTIN 300 MG CAPSULE PO SCH ×4 (08:33→21:03)
[2022-03-31] MEDS: MULTIVITAMINS WITH MINERALS, THERAPEUTIC TABLET PO SCH ×2 (08:33→21:03)
[2022-03-31] MEDS: LevETIRAcetam 500 MG TABLET PO SCH ×2 (08:33→21:03)
[2022-03-31] MEDS: PANTOPRAZOLE SODIUM 40 MG/VIAL IVP SCH ×2 (08:34→21:03)
[2022-03-31] MEDS: LORazepam 2 MG TABLET PO SCH ×2 (08:40→12:04)
[2022-03-31] MEDS ORDERED: MULTIVITAMINS WITH MINERALS, THERAPEUTIC TABLET PO SCH (09:00)
[2022-03-31 11:13] VITALS: BP 114/75
[2022-03-31 11:37] LABS: HEMOGLOBIN 13.1 g/dL (13.5-17.5)
[2022-03-31] MEDS: OMEGA-3/DHA/EPA/FISH OIL 1,000 MG CAPSULE PO SCH (12:03)
[2022-03-31] MEDS: NALTREXONE HCL 50 MG TABLET PO SCH (12:03)
[2022-03-31 16:16] VITALS: BP 112/69
[2022-03-31 17:04] LABS: HEMATOCRIT 43.9 % (41-53)
[2022-03-31 19:20] VITALS: BP 116/65
[2022-03-31] MEDS: MELATONIN 5 MG TABLET PO SCH (21:03)
[2022-03-31] MEDS: OLANZapine 5 MG RAPDIS TABLET PO SCH (22:06)
[2022-03-31] MEDS: PARoxetine HCL 20 MG TABLET PO SCH (22:06)
[2022-03-31 22:13] LABS: HEMATOCRIT 38.4 % (41-53); HEMOGLOBIN 12.6 g/dL (13.5-17.5)
[2022-03-31 23:57] VITALS: BP 109/6
[2022-04-01 04:30] VITALS: BP 96/51
[2022-04-01 07:31] VITALS: BP 99/63
[2022-04-01 08:19] LABS: HEMOGLOBIN 12.9 g/dL (13.5-17.5)
[2022-04-01] MEDS: PANTOPRAZOLE SODIUM 40 MG/VIAL IVP SCH ×2 (09:54→20:02)
[2022-04-01] MEDS: OMEGA-3/DHA/EPA/FISH OIL 1,000 MG CAPSULE PO SCH (09:55)
[2022-04-01] MEDS: GABAPENTIN 300 MG CAPSULE PO SCH ×4 (09:55→20:01)
[2022-04-01] MEDS: NALTREXONE HCL 50 MG TABLET PO SCH (09:55)
[2022-04-01] MEDS: LevETIRAcetam 500 MG TABLET PO SCH ×2 (09:55→20:01)
[2022-04-01] MEDS: MULTIVITAMINS WITH MINERALS, THERAPEUTIC TABLET PO SCH ×2 (09:55→20:01)
[2022-04-01 11:25] VITALS: BP 111/62
[2022-04-01] MEDS ORDERED: MAGNESIUM SULFATE 2 GM, MVI, ADULT NO.1 WITH VIT K 10 ML, THIAMINE 100 MG, FOLIC ACID 1... IV ONE ×5 (14:00)
[2022-04-01 15:15] VITALS: BP 109/56
[2022-04-01 19:29] VITALS: BP 120/64
[2022-04-01] MEDS: OLANZapine 5 MG RAPDIS TABLET PO SCH (20:01)
[2022-04-01] MEDS: PARoxetine HCL 20 MG TABLET PO SCH (20:01)
[2022-04-01] MEDS: MELATONIN 5 MG TABLET PO SCH (20:02)
[2022-04-02 00:27] VITALS: BP 102/55
[2022-04-02 05:39] VITALS: BP 148/90
[2022-04-02] MEDS ORDERED: LORazepam 1 MG TABLET PO PRN (07:00)
[2022-04-02 07:21] VITALS: BP 100/49
[2022-04-02] MEDS: GABAPENTIN 300 MG CAPSULE PO SCH ×4 (08:29→21:52)
[2022-04-02] MEDS: HEPARIN SODIUM,PORCINE 5,000 UNITS/ML VIAL SQ SCH ×3 (08:29→16:00)
[2022-04-02] MEDS: OMEGA-3/DHA/EPA/FISH OIL 1,000 MG CAPSULE PO SCH (08:29)
[2022-04-02] MEDS: LevETIRAcetam 500 MG TABLET PO SCH ×2 (08:30→21:52)
[2022-04-02] MEDS: PANTOPRAZOLE SODIUM 40 MG/VIAL IVP SCH ×2 (08:30→21:55)
[2022-04-02] MEDS: MULTIVITAMINS WITH MINERALS, THERAPEUTIC TABLET PO SCH ×2 (08:30→21:51)
[2022-04-02] MEDS: NALTREXONE HCL 50 MG TABLET PO SCH (08:31)
[2022-04-02] MEDS ORDERED: LORazepam 1 MG TABLET PO SCH (09:00)
[2022-04-02] MEDS ORDERED: PARO-38 PO (10:07)
[2022-04-02] MEDS ORDERED: LEVE500T20 PO ×2 (10:07→10:32)
[2022-04-02] MEDS ORDERED: NALT50TA6 PO (10:07)
[2022-04-02 11:09] VITALS: BP 117/70
[2022-04-02 15:37] VITALS: BP 124/58
[2022-04-02 20:32] VITALS: BP 113/66
[2022-04-02] MEDS: PARoxetine HCL 20 MG TABLET PO SCH (21:51)
[2022-04-02] MEDS: MELATONIN 5 MG TABLET PO SCH (21:51)
[2022-04-02] MEDS: OLANZapine 5 MG RAPDIS TABLET PO SCH (21:52)
[2022-04-03 00:45] VITALS: BP 122/65
[2022-04-03] MEDS: HEPARIN SODIUM,PORCINE 5,000 UNITS/ML VIAL SQ SCH ×2 (01:16)
[2022-04-03 05:34] VITALS: BP 101/64
[2022-04-03] MEDS ORDERED: LORazepam 1 MG TABLET PO PRN (07:00)
[2022-04-03 07:22] VITALS: BP 100/57
== END 2022-04-03 08:55 | disposition home or self-care (01) | DRG 52 ==
LOC: EMS 17:37 → 5S 03-31 07:25
PROVIDERS: ADMIT Internal Medicine; ATTEND Internal Medicine
DX: G92.9 Unspecified toxic encephalopathy (principal); K92.0 Hematemesis; G40.909 Epilepsy, unspecified, not intractable, without status epilepticus; E66.01 Morbid (severe) obesity due to excess calories; D64.9 Anemia, unspecified; Z20.822 Contact with and (suspected) exposure to COVID-19; F43.10 Post-traumatic stress disorder, unspecified; Y90.8 Blood alcohol level of 240 mg/100 ml or more; F32.A Depression, unspecified; F41.9 Anxiety disorder, unspecified; F10.239 Alcohol dependence with withdrawal, unspecified; Z68.37 Body mass index [BMI] 37.0-37.9, adult; Z79.899 Other long term (current) drug therapy
CPT/HCPCS: 70450; 72125; 80048; 80053; 83735; 85014; 85018; 85025; 99285; C9113; G0378; G0480; G0482; J0712; J1644; J3411; J3475; J3490; J7030; J7060; Q9967